=== PATIENT | female | born 1945 | race Caucasian/White ===

== ENCOUNTER 2018-07-09 14:27 | Emergency (ER) | payer MEDICARE, OTHER ==
--- NOTE | 2018-07-09 15:29 | ER Document Report ---
ED Medical Screen (RME) - General Chief Complaint: Vaginal Bleeding Stated Complaint: DIZZINESS,VAGINAL BLEEDING Time Seen by Provider: 07/09/18 15:21 Notes: 72-year-old female patient complains of a progressive weakness. In the recent past she had a defective hip implant changed out due to a problem with heavy metals leaching from the implant surface. She reports 3 weeks of blood when she urinates, does not know if the blood is in the urine or coming from the vagina. She has not had a speculum exam or a catheterized urine to determine where the blood is coming from. She has seen her urologist. I have greeted and performed a rapid initial assessment of this patient. A comprehensive ED assessment and evaluation of the patient, analysis of test results and completion of the medical decision making process will be conducted by additional ED providers. TRAVEL OUTSIDE OF THE [place] IN LAST 30 DAYS: No - Related Data Allergies/Adverse Reactions: acetaminophen [From Percocet] Allergy (Mild, Verified 07/09/18 14:30) Itching oxycodone HCl [From Percocet] Allergy (Mild, Verified 07/09/18 14:30) Itching pneumococcal 7-valent conjugate to [From Prevnar] Allergy (Verified 07/09/18 15:20) Past Medical History - Social History Chew tobacco use (# tins/day): No Frequency of alcohol use: None Drug Abuse: None - Past Medical History Cardiac Medical History: Reports: Hx Hypertension Renal/ Medical History: Denies: Hx Peritoneal Dialysis GI Medical History: Reports: Hx Gastroesophageal Reflux Disease Musculoskeltal Medical History: Reports Hx Arthritis - osteo Past Surgical History: Reports: Hx Orthopedic Surgery - left shoulder surgery, bilateral hip surgeries - Immunizations Hx Diphtheria, Pertussis, Tetanus Vaccination: No Physical Exam - Vital signs Vitals: Temp Pulse Resp BP Pulse Ox 98.4 F 112 H 16 124/70 93 07/09/18 14:36 07/09/18 14:36 07/09/18 14:36 07/09/18 14:36 07/09/18 14:36 Course - Vital Signs Vital signs: Temp Pulse Resp BP Pulse Ox 98.4 F 112 H 16 124/70 93 07/09/18 14:36 07/09/18 14:36 07/09/18 14:36 07/09/18 14:36 07/09/18 14:36
[2018-07-09 16:15] LABS: ABSOLUTE BASOPHILS # (AUTO) 0.1 10^3/uL (0.0-0.2); ABSOLUTE LYMPHOCYTES (AUTO) 0.9 10^3/uL (0.5-4.7); ABSOLUTE MONOCYTES (AUTO) 0.9 10^3/uL (0.1-1.4); ABSOLUTE NEUT (AUTO) 7.1 10^3/uL (1.7-8.2); BASOPHILS % (AUTO) 1.1 % (0-2); EOSINOPHILS % (AUTO) 0.2 % (0-6); HEMATOCRIT 35.6 % (36.0-47.0); HEMOGLOBIN 11.8 g/dL (12.0-15.5); LYMPHOCYTES % (AUTO) 9.7 % (13-45); MEAN CORPUSCULAR HEMOGLOBIN 27.7 pg (27.0-33.4); MEAN CORPUSCULAR HGB CONC 33.2 g/dL (32.0-36.0); MEAN CORPUSCULAR VOLUME 83 fl (80-97); MONOCYTES % (AUTO) 10.2 % (3-13); PLATELET COUNT 418 10^3/uL (150-450); RED BLOOD COUNT 4.27 10^6/uL (3.72-5.28); RED CELL DISTRIBUTION WIDTH 15.8 % (11.5-14.0); SEGMENTED NEUTROPHILS % (AUTO) 78.8 % (42-78); TOTAL CELLS COUNTED % (AUTO) 100 %
[2018-07-09 16:18] LABS: APPEARANCE,URINE SLIGHTLY-CLOUDY; BILIRUBIN,URINE NEGATIVE (NEGATIVE); COLOR,URINE YELLOW; GLUCOSE, URINE NEGATIVE (NEGATIVE); KETONES,URINE NEGATIVE (NEGATIVE); LEUKOCYTE ESTERASE,URINE SMALL (NEGATIVE); NITRITE,URINE NEGATIVE (NEGATIVE); PROTEIN,URINE NEGATIVE (NEGATIVE); UROBILINOGEN,URINE NEGATIVE mg/dL (<2.0)
[2018-07-09 16:34] LABS: ALANINE AMINOTRANSFERASE 33 U/L (9-52); ALBUMIN 3.5 g/dL (3.5-5.0); ALKALINE PHOSPHATASE 96 U/L (38-126); ANION GAP 6 (5-19); ASPARTATE AMINO TRANSFERASE 81 U/L (14-36); BILIRUBIN,DIRECT 0.3 mg/dL (0.0-0.4); BILIRUBIN,TOTAL 0.3 mg/dL (0.2-1.3); BLOOD UREA NITROGEN 18 mg/dL (7-20); CARBON DIOXIDE 28 mmol/L (22-30); CHLORIDE 103 mmol/L (98-107); GLUCOSE 85 mg/dL (75-110); POTASSIUM 4.4 mmol/L (3.6-5.0); SODIUM 137.3 mmol/L (137-145); TOTAL PROTEIN 6.3 g/dL (6.3-8.2)
[2018-07-09] MEDS ORDERED: NORMAL SALINE 500 ML IV ONE (16:44)
--- NOTE | 2018-07-09 18:04 | ER Document Report ---
ED General - General Chief Complaint: Vaginal Bleeding Stated Complaint: DIZZINESS,VAGINAL BLEEDING Time Seen by Provider: 07/09/18 15:21 Notes: Patient is a 72-year-old female that presents to the emergency department for chief complaint of fatigue, lightheadedness, and vaginal bleeding. Patient states that she has had weakness, and lightheadedness and vertigo symptoms that have been progressing over the last several days, and may be longer over months, she is had decreased appetite as well. She also reports having some vaginal bleeding. She has had recurrent urinary tract infections, has been following up with a urologist as well she is been on multiple antibiotics, most recently she discontinued them because she was not feeling well, on Monday coming up here next week she is supposed to have a cystoscopy, to help determine why she is continuing to have recurrent UTIs. In regards to the vaginal bleeding she states that started a few weeks ago as well, and she has been having blood in pads that she is been wearing. She is not sure she is becoming anemic as a result. She denies having any blood in the urine, or blood in the stool. She denies having any pain at this time, and specifically denies having any headache, chest pain, shortness of breath, difficulty breathing, abdominal pain. Past Medical History: Osteoarthritis, rheumatoid arthritis, hypertension, hypothyroidism Past Surgical History: Total hip arthroplasty with revision Social History: Denies tobacco, alcohol or illicit drug use. Family History: Reviewed and noncontributory for presenting illness Allergies: Reviewed, see documented allergy list. REVIEW OF SYSTEMS: Other than noted above, the 12 point review of systems was reviewed with the patient and were negative, all pertinent findings are included in the HPI. PHYSICAL EXAMINATION: Vital signs reviewed, nursing noted reviewed. GENERAL: Elderly, well-developed, well-appearing female, no acute distress HEAD: Atraumatic, normocephalic. EYES: Eyes appear normal, extraocular movements intact, sclera anicteric, conjunctiva are normal. PERRLA, no nystagmus ENT: nares patent, oropharynx clear without exudates. Moist mucous membranes. NECK: Normal range of motion, supple without lymphadenopathy LUNGS: Breath sounds clear to auscultation bilaterally and equal. No wheezes rales or rhonchi. HEART: Regular rate and rhythm without murmurs ABDOMEN: Soft, nontender, normoactive bowel sounds. No rebound, guarding, or rigidity. No masses appreciated. Pelvic Exam: With a set up mechanic coating machines present the exam was explained to the patient and patient agreed to proceed with exam. On exam, no external lesions or abnormalities noted. Internal speculum exam demonstrated normal appearing cervix without purulent discharge, but there was blood in the vaginal vault, appear to be some bleeding from the cervix, but was scant. EXTREMITIES: Nontender, good range of motion, no pitting or edema. NEUROLOGICAL: No focal neurological deficits. Moves all extremities spontaneously Motor and sensory grossly intact on exam. PSYCH: Normal mood, normal affect. SKIN: Warm, Dry, normal turgor, no rashes or lesions noted on exposed skin TRAVEL OUTSIDE OF THE [place] IN LAST 30 DAYS: No - Related Data Allergies/Adverse Reactions: acetaminophen [From Percocet] Allergy (Mild, Verified 07/09/18 14:30) Itching oxycodone HCl [From Percocet] Allergy (Mild, Verified 07/09/18 14:30) Itching pneumococcal 7-valent conjugate to [From Prevnar] Allergy (Verified 07/09/18 15:20) Past Medical History - Social History Smoking Status: Never Smoker Chew tobacco use (# tins/day): No Frequency of alcohol use: None Drug Abuse: None Family History: Reviewed & Not Pertinent Patient has suicidal ideation: No Patient has homicidal ideation: No - Past Medical History Cardiac Medical History: Reports: Hx Hypertension Renal/ Medical History: Denies: Hx Peritoneal Dialysis GI Medical History: Reports: Hx Gastroesophageal Reflux Disease Musculoskeletal Medical History: Reports Hx Arthritis - osteo Past Surgical History: Reports: Hx Orthopedic Surgery - left shoulder surgery, b ilateral hip surgeries - Immunizations Hx Diphtheria, Pertussis, Tetanus Vaccination: No Hx Pneumococcal Vaccination: 06/26/08 Physical Exam - Vital signs Vitals: Temp Pulse Resp BP Pulse Ox 98.4 F 112 H 16 124/70 93 07/09/18 14:36 07/09/18 14:36 07/09/18 14:36 07/09/18 14:36 07/09/18 14:36 Course - Re-evaluation Re-evalutation: Patient seen and examined vital signs reviewed. Laboratory data and imaging were ordered as appropriate for the patient's presenting symptoms and complaint, with consideration of any critical or life threatening conditions that may be associated with their obtained history and exam as noted above. Patient was treated with IV fluid Results were reviewed when available and demonstrated an enlarged uterus, with endometrial thickening, concerning for possible endometrial carcinoma, I discussed at length these results with the patient, and that she will need to follow-up with gynecology to have an endometrial biopsy, which she understood and states that she will call to make an appointment tomorrow, she is also noted to have an elevated TSH, with a low T3, which may be explaining her lightheadedness symptoms, and fatigue, she is currently on 100 mcg of Synthroid, increase this 112 mcg. Advised to follow-up with her primary care physician regarding this. She is also given a prescription for meclizine to help with some of her vertigo-like symptoms. She is advised if her symptoms worsen that she needs to return to the emergency department. She did have a mild anemia, but was not significant, her hemoglobin was 11.8. Her urine was sent for culture, we will not treat at this time as the patient is asymptomatic and following up with urology next week. The patient was re-evaluated and was stable, and improved Evaluation was most consistent with vaginal bleeding, postmenopausal, hypothyroidism, fatigue, lightheadedness Results were discussed with the patient at this point, after careful consideration I feel that that patient can be discharged from the emergency department, the patient was educated treatments and reasons to return to the emergency department based on their presumed diagnosis as noted above, they were advised to followup with a primary care physician in 2-3 days. Patient was agreeable to plan of care. *Note is created using voice recognition software and may contain spelling, syntax or grammatical errors. Laboratory 07/09/18 07/09/18 07/09/18 15:54 16:01 16:01 WBC 9.0 RBC 4.27 Hgb 11.8 L Hct 35.6 L MCV 83 MCH 27.7 MCHC 33.2 RDW 15.8 H Plt Count 418 Seg Neutrophils % 78.8 H Lymphocytes % 9.7 L Monocytes % 10.2 Eosinophils % 0.2 Basophils % 1.1 Absolute Neutrophils 7.1 Absolute Lymphocytes 0.9 Absolute Monocytes 0.9 Absolute Eosinophils 0.0 Absolute Basophils 0.1 Sodium 137.3 Potassium 4.4 Chloride 103 Carbon Dioxide 28 Anion Gap 6 BUN 18 Creatinine 0.77 Est GFR ( Amer) > 60 Est GFR (Non-Af Amer) > 60 Glucose 85 Calcium 9.0 Total Bilirubin 0.3 Direct Bilirubin 0.3 Neonat Total Bilirubin Not Reportable Neonat Direct Bilirubin Not Reportable Neonat Indirect Bili Not Reportable AST 81 H ALT 33 Alkaline Phosphatase 96 Total Protein 6.3 Albumin 3.5 TSH Free T4 Free T3 pg/mL Urine Color YELLOW Urine Appearance SLIGHTLY-CLOUDY Urine pH 5.0 Ur Specific [place] 1.020 Urine Protein NEGATIVE Urine Glucose (UA) NEGATIVE Urine Ketones NEGATIVE Urine Blood NEGATIVE Urine Nitrite NEGATIVE Urine Bilirubin NEGATIVE Urine Urobilinogen NEGATIVE Ur Leukocyte Esterase SMALL H Urine WBC (Auto) 22 Urine RBC (Auto) 3 Urine Bacteria (Auto) 3+ Squamous Epi Cells Auto <1 Urine Mucus (Auto) MANY Urine Ascorbic Acid 40 H 07/09/18 07/09/18 16:01 16:01 WBC RBC Hgb Hct MCV MCH MCHC RDW Plt Count Seg Neutrophils % Lymphocytes % Monocytes % Eosinophils % Basophils % Absolute Neutrophils Absolute Lymphocytes Absolute Monocytes Absolute Eosinophils Absolute Basophils Sodium Potassium Chloride Carbon Dioxide Anion Gap BUN Creatinine Est GFR ( Amer) Est GFR (Non-Af Amer) Glucose Calcium Total Bilirubin Direct Bilirubin Neonat Total Bilirubin Neonat Direct Bilirubin Neonat Indirect Bili AST ALT Alkaline Phosphatase Total Protein Albumin TSH 8.33 H Free T4 1.56 Free T3 pg/mL 2.55 L Urine Color Urine Appearance Urine pH Ur Specific [place] Urine Protein Urine Glucose (UA) Urine Ketones Urine Blood Urine Nitrite Urine Bilirubin Urine Urobilinogen Ur Leukocyte Esterase Urine WBC (Auto) Urine RBC (Auto) Urine Bacteria (Auto) Squamous Epi Cells Auto Urine Mucus (Auto) Urine Ascorbic Acid Transvaginal US 07/09/18 18:14 IMPRESSION: 1. Enlarged uterus with thickened endometrium containing heterogeneous material, which may represent blood products. Given the patient's age, further imaging with MRI suggested. 2. The left and right ovaries were not visualized. - Vital Signs Vital signs: Temp Pulse Resp BP Pulse Ox 98.7 F 89 18 139/77 H 93 07/09/18 21:33 07/09/18 21:33 07/09/18 21:33 07/09/18 21:33 07/09/18 21:33 - Laboratory Result Diagrams: 07/09/18 16:01 07/09/18 16:01 Laboratory results interpreted by me: 07/09/18 07/09/18 07/09/18 15:54 16:01 16:01 Hgb 11.8 L Hct 35.6 L RDW 15.8 H Seg Neutrophils % 78.8 H Lymphocytes % 9.7 L AST 81 H TSH Free T3 pg/mL Ur Leukocyte Esterase SMALL H Urine Ascorbic Acid 40 H 07/09/18 07/09/18 16:01 16:01 Hgb Hct RDW Seg Neutrophils % Lymphocytes % AST TSH 8.33 H Free T3 pg/mL 2.55 L Ur Leukocyte Esterase Urine Ascorbic Acid Discharge - Discharge Clinical Impression: Dizziness, Vaginal bleeding, Endometrial thickening on ultrasound Fatigue Qualifiers: Fatigue type: unspecified Qualified Code(s): R53.83 - Other fatigue Hypothyroidism Qualifiers: Hypothyroidism type: unspecified Qualified Code(s): E03.9 - Hypothyroidism, unspecified Condition: Stable Disposition: HOME, SELF-CARE Instructions: Hypothyroidism ([facility]), Vaginal Bleeding ([facility]) Additional Instructions: Please follow-up with the manager technical sales, call for an appointment tomorrow, and let them know that you need an ENDOMETRIAL BIOPSY because you had bleeding and an abnormal ultrasound in the emergency department and there is concern for cancer. Please take the new dose of Synthroid, once daily in the morning before taking any food, 30 minutes before breakfast, and follow-up with your primary care physician, I would discontinue taking your current dose of Synthroid, do not take them together. You also take the meclizine, to help with your dizziness symptoms, you can take that every 8 hours as needed. Prescriptions: Levothyroxine Sodium [Synthroid 0.112 mg Tablet] 112 mcg PO DAILY #14 tablet RX: Meclizine HCl [Antivert 25 mg Tablet] 25 mg PO TID PRN #15 tablet PRN Reason: Dizziness Referrals: [facility] [Provider Group] - Follow up tomorrow CLAUDIA LUQUE MD [Primary Care Provider] - Follow up in 3-5 days
[2018-07-09 19:19] LABS: FREE T3 2.55 pg/mL (2.77-5.27); FREE T4 (FREE THYROXINE) 1.56 ng/dL (0.78-2.19)
--- NOTE | 2018-07-09 21:07 | RADIOLOGY REPORT (SQ) ---
US PELVIS HISTORY: Vaginal bleeding. COMPARISON: None. TECHNIQUE: Grayscale, color Doppler, and spectral Doppler ultrasound images of the pelvis were obtained. FINDINGS: The uterus is anteverted and heterogeneous, measuring 11.7 x 7.4 x 8.3 cm. The endometrium is heterogeneous and measures 3.8 cm. The cervix measures 3.5 cm in length. The right and left ovaries were not visualized on this study. There is no pelvic free fluid identified. IMPRESSION: 1. Enlarged uterus with thickened endometrium containing heterogeneous material, which may represent blood products. Given the patient's age, further imaging with MRI suggested. 2. The left and right ovaries were not visualized.
[2018-07-09 21:35] VITALS: BP 139/77
== END 2018-07-09 21:36 | disposition home or self-care (01) ==
LOC: ER 14:27
DX: E03.9 Hypothyroidism, unspecified (principal); R93.89 Abnormal findings on diagnostic imaging of other specified body structures; R53.83 Other fatigue; R42 Dizziness and giddiness; N93.9 Abnormal uterine and vaginal bleeding, unspecified; R53.1 Weakness; R63.0 Anorexia; I10 Essential (primary) hypertension
CPT/HCPCS: 99284; 96360; 96361; 51701; 36415; 87086; 84439; 84443; 85025; 87088; 80053; 81001; 87186; 84481; 76830; 93976; J7040

== ENCOUNTER → 2018-07-20 | Outpatient (CLI) | payer MEDICARE, OTHER ==
--- NOTE | 2018-07-20 14:06 | RADIOLOGY REPORT (SQ) ---
EXAM DESCRIPTION: CT HEAD WITH COMPLETED DATE/TIME: 07/20/2018 1:39 pm REASON FOR STUDY: R91.8 OTHER NONSPECIFIC ABNORMAL FINDING OF LUNG FIELD N85.9 NONINFLAMMATORY DISO RDER OF UTERUS, UNSPECIFIED R91.8 OTHER NONSPECIFIC ABNORMAL FINDING OF LUNG FIELD COMPARISON: CT brain 05/11/2012 CT chest 07/20/2018 TECHNIQUE: Axial images acquired through the brain without and with intravenous contrast. Images rev iewed with bone, brain and subdural windows. Additional sagittal and coronal reconstructions were ge nerated. Images stored on PACS. All CT scanners at this facility use dose modulation, iterative reconstruction, and/or weight based d osing when appropriate to reduce radiation dose to as low as reasonably achievable (ALARA). [facility]: Dose Right [facility]: CareDose [facility]: Dose Right [facility]: Teradose 4D [facility]: [employer] CONTRAST TYPE AND DOSE: 80 mL of IV Omnipaque 350- low osmolar. RENAL FUNCTION: Creatinine 0.8. RADIATION DOSE: CT Rad equipment meets quality standard of care and radiation dose reduction techniq ues were employed. CTDIvol: 48.6 mGy. DLP: 904 mGy-cm.. LIMITATIONS: None. FINDINGS: VENTRICLES: Normal size and contour. CEREBRUM: No masses. No hemorrhage. No midline shift. Benign perivascular space right basal ganglia Normal camacho/white matter differentiation. No evidence for acute infarction. No enhancing lesions. CEREBELLUM: No masses. No hemorrhage. No alteration of density. No evidence for acute infarction. No enhancing lesions. EXTRA-AXIAL SPACES: No fluid collections. No enhancing lesions. ORBITS AND GLOBE: No intra- or extraconal masses. Normal contour of globe without masses. CALVARIUM: No fracture. PARANASAL SINUSES: No fluid or mucosal thickening. SOFT TISSUES: No mass or hematoma. OTHER: No other significant finding. IMPRESSION: No CT evidence of metastatic disease intracranially. Benign perivascular space right ba ankur ganglia. EVIDENCE OF ACUTE STROKE: NO. TECHNICAL DOCUMENTATION: JOB ID: [id number] Quality ID # [id number]: Final reports with documentation of one or more dose reduction techniques (e.g., Au tomated exposure control, adjustment of the mA and/or kV according to patient size, use of iterative reconstruction technique) 2010 [employer]- All Rights Reserved Reading location - IP/workstation name: [email or web address]
--- NOTE | 2018-07-20 14:15 | RADIOLOGY REPORT (SQ) ---
EXAM DESCRIPTION: CT CHEST WITH COMPLETED DATE/TIME: 07/20/2018 1:39 pm REASON FOR STUDY: R91.8 OTHER NONSPECIFIC ABNORMAL FINDING OF LUNG FIELD N85.9 NONINFLAMMATORY DISO RDER OF UTERUS, UNSPECIFIED R91.8 OTHER NONSPECIFIC ABNORMAL FINDING OF LUNG FIELD COMPARISON: CT abdomen pelvis [facility] 07/16/2018 CT brain here, same date TECHNIQUE: CT scan of the chest performed using helical scanning technique with dynamic intravenous contrast injection. Images reviewed with lung, soft tissue and bone windows. Reconstructed coronal and sagittal MPR and MIP images reviewed. All images stored on PACS. All CT scanners at this facility use dose modulation, iterative reconstruction, and/or weight based d osing when appropriate to reduce radiation dose to as low as reasonably achievable (ALARA). [facility]: Dose Right [facility]: CareDose [facility]: Dose Right [facility]: Teradose 4D [facility]: [employer] CONTRAST TYPE AND DOSE: contrast/concentration: Isovue 350.00 mg/ml; Total Contrast Delivered: 80.0 ml; Total Saline Delivered: 55.0 ml RENAL FUNCTION: Creatinine 0.8 RADIATION DOSE: CT Rad equipment meets quality standard of care and radiation dose reduction techniq ues were employed. CTDIvol: 8.6 mGy. DLP: 341 mGy-cm. . LIMITATIONS: None. FINDINGS: LUNGS AND PLEURA: Innumerable lung metastatic lesions are present M of the motor ALEJANDRO which are 2 cm in diameter. Largest conglomerate nodule is in the right lower lobe axial image 76, 4.6 by 3.2 cm in size. Findings are worrisome for metastatic disease. No pleural effusion. No pneumothorax. No alveolar infiltrates worrisome for pulmonary edema. HILAR AND MEDIASTINAL STRUCTURES: Bulky adenopathy in the mediastinum is present as follows: 3 x 2.2 cm right paratracheal axial image 18 2.4 x 2 cm precarinal axial image 23. 2.5 x 1.7 cm AP window axial image 24 3.7 x 2.3 cm right hilum axial image 28 2 x 1.7 cm right hilum axial image 33 2.2 x 2 cm left hilum axial image 32 HEART AND VASCULAR STRUCTURES: No aneurysm or dissection. No central pulmonary emboli. No pericardi al effusion. HARDWARE: None in the chest. UPPER ABDOMEN: No significant findings. Limited exam. THYROID AND OTHER SOFT TISSUES: No masses. No adenopathy. BONES: No significant finding. OTHER: No other significant finding. IMPRESSION: Multiple pulmonary nodules worrisome for metastatic disease. Hilar and mediastinal nessa opathy. TECHNICAL DOCUMENTATION: JOB ID: [id number] Quality ID # 436: Final reports with documentation of one or more dose reduction techniques (e.g., Au tomated exposure control, adjustment of the mA and/or kV according to patient size, use of iterative reconstruction technique) 2010 [employer]- All Rights Reserved Reading location - IP/workstation name: [email or web address]
== END ==
LOC: RAD 12:55
PROVIDERS: ATTEND Internal Medicine Hematology & Oncology
DX: N85.9 Noninflammatory disorder of uterus, unspecified (principal); R91.8 Other nonspecific abnormal finding of lung field
CPT/HCPCS: 70460; 71260

== ENCOUNTER 2018-07-31 08:16 | Day surgery (SDC) | payer MEDICARE, OTHER ==
[2018-07-31 09:14] LABS: HEMATOCRIT 37.9 % (36.0-47.0); HEMOGLOBIN 12.6 g/dL (12.0-15.5); MEAN CORPUSCULAR HGB CONC 33.2 g/dL (32.0-36.0); MEAN CORPUSCULAR VOLUME 82 fl (80-97); PLATELET COUNT 444 10^3/uL (150-450); RED BLOOD COUNT 4.64 10^6/uL (3.72-5.28); RED CELL DISTRIBUTION WIDTH 15.6 % (11.5-14.0); WHITE BLOOD COUNT 9.2 10^3/uL (4.0-10.5)
[2018-07-31 09:25] LABS: INTERNATIONAL RATION (INR) 1.08; PROTHROMBIN TIME 14.5 SEC (11.4-15.4)
[2018-07-31 09:26] LABS: PARTIAL THROMBOPLASTIN TIME 28.6 SEC (23.5-35.8)
[2018-07-31 09:31] LABS: BLOOD UREA NITROGEN 13 mg/dL (7-20)
[2018-07-31] MEDS ORDERED: LIDOCAINE 1% INJ-PF (10 MG/ML) 30 ML SDV ONE (10:55)
[2018-07-31] MEDS ORDERED: FENTANYL CITRATE INJ/PF 100 MCG/2 ML AMPUL ONE ×2 (10:55→12:23)
[2018-07-31] MEDS ORDERED: MIDAZOLAM 2 MG/2 ML INJ ONE ×2 (10:55→12:23)
--- NOTE | 2018-07-31 12:14 | RADIOLOGY REPORT (SQ) ---
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 TECHNIQUE: CT guided biopsy of the right lower lobe pulmonary nodule performed with conscious sedati on. All CT scanners at this facility use dose modulation, iterative reconstruction, and/or weight based d osing when appropriate to reduce radiation dose to as low as reasonably achievable (ALARA). [facility]: Dose Right [facility]: CareDose [facility]: Dose Right [facility]: Teradose 4D [facility]: [employer] RADIATION DOSE: mGy. FINDINGS: After obtaining informed consent and explaining the risks and benefits of conscious sedati on,the patient agreed to the procedure. Prior to the procedure, a time out was performed to verify th e patient's identity and planned procedure. IV sedation was administered and physician direction by the registered nurse using 1 milligrams of Ve rsed and 50 micrograms of fentanyl, for conscious sedation. Physiologic monitoring was provided befor e, during, and after sedation. The total sedation time was 30 minutes. Documentation face to face time, the performing proceduralist, spent monitoring the patient: [address] scanning was performed to localize the percutaneous site for the biopsy approach. After sterile skin prep and local lidocaine for skin and deep tissue anesthesia, a coaxial biopsy nee dle was used to obtain multiple cores of tissue. A total of 4 passes were made. The biopsy tissue was submitted to the lab in formalin. There were no immediate complications. Pathology is pending at the time of dictation. IMPRESSION: CT FLUOROSCOPY GUIDED BIOPSY OF THE RIGHT LOWER LOBE PULMONARY NODULE PERFORMED WITHOUT IMMEDIATE COMPLICATION. PATHOLOGY PENDING. COMMENT: Quality ID 145: Final reports for procedures using fluoroscopy that document radiation exp osure indices, or exposure time and number of fluorographic images (if radiation exposure indices are not available) Patient medication list reviewed: Yes- Quality ID# [id number]:Eligible professional attests to documenting i n the medical record they obtained, updated, or reviewed the patient's current medications.. TECHNICAL DOCUMENTATION: JOB ID: [id number] Quality ID# 436: Final reports with documentation of one or more dose reduction techniques (e.g., Aut omated exposure control, adjustment of the mA and/or kV according to patient size, use of iterative r econstruction technique) 2010 [employer] All Rights Reserved Reading location - IP/workstation name: [email or web address]
--- NOTE | 2018-07-31 12:14 | RADIOLOGY REPORT (SQ) ---
EXAM DESCRIPTION: CT BIOPSY LUNG/MEDIASTINUM; CT NEEDLE PLACEMENT COMPLETED DATE/TIME: 07/31/2018 11:51 am; 07/31/2018 11:49 am REASON FOR STUDY: MALIGNANT NEOPLASM OF ENDOMETRIUM; MALIGNANT NEOPLASM OF ENDOMETRIUM, LUNG BIOPSY C54.1 MALIGNANT NEOPLASM OF ENDOMETRIUM Z79.01 TREATER (CURRENT) USE OF ANTICOAGULANTS COMPARISON: None. TECHNIQUE: CT guided biopsy of the right lower lobe pulmonary nodule performed with conscious sedati on. All CT scanners at this facility use dose modulation, iterative reconstruction, and/or weight based d osing when appropriate to reduce radiation dose to as low as reasonably achievable (ALARA). [facility]: Dose Right [facility]: CareDose [facility]: Dose Right [facility]: Teradose 4D [facility]: [employer] RADIATION DOSE: mGy. FINDINGS: After obtaining informed consent and explaining the risks and benefits of conscious sedati on,the patient agreed to the procedure. Prior to the procedure, a time out was performed to verify th e patient's identity and planned procedure. IV sedation was administered and physician direction by the registered nurse using 1 milligrams of Ve rsed and 50 micrograms of fentanyl, for conscious sedation. Physiologic monitoring was provided befor e, during, and after sedation. The total sedation time was 30 minutes. Documentation face to face time, the performing proceduralist, spent monitoring the patient: [address] scanning was performed to localize the percutaneous site for the biopsy approach. After sterile skin prep and local lidocaine for skin and deep tissue anesthesia, a coaxial biopsy nee dle was used to obtain multiple cores of tissue. A total of 4 passes were made. The biopsy tissue was submitted to the lab in formalin. There were no immediate complications. Pathology is pending at the time of dictation. IMPRESSION: CT FLUOROSCOPY GUIDED BIOPSY OF THE RIGHT LOWER LOBE PULMONARY NODULE PERFORMED WITHOUT IMMEDIATE COMPLICATION. PATHOLOGY PENDING. COMMENT: Quality ID 145: Final reports for procedures using fluoroscopy that document radiation exp osure indices, or exposure time and number of fluorographic images (if radiation exposure indices are not available) Patient medication list reviewed: Yes- Quality ID# 130:Eligible professional attests to documenting i n the medical record they obtained, updated, or reviewed the patient's current medications.. TECHNICAL DOCUMENTATION: JOB ID: [id number] Quality ID# 436: Final reports with documentation of one or more dose reduction techniques (e.g., Aut omated exposure control, adjustment of the mA and/or kV according to patient size, use of iterative r econstruction technique) 2010 [employer]- All Rights Reserved Reading location - IP/workstation name: [email or web address]
[2018-07-31] MEDS ORDERED: LIDOCAINE 0.5% INJ-PF (5 MG/ML) 50 ML SDV ONE (12:22)
[2018-07-31] MEDS ORDERED: BACITRACIN INJ 50,000 UNIT VIAL ONE (12:23)
[2018-07-31] MEDS ORDERED: CEFAZOLIN INJ 1 GM VIAL ONE (12:23)
--- NOTE | 2018-07-31 12:29 | RADIOLOGY REPORT (SQ) ---
EXAM DESCRIPTION: CHEST SINGLE VIEW COMPLETED DATE/TIME: 07/31/2018 12:06 pm REASON FOR STUDY: MALIGNANT NEOPLASM OF ENDOMETRIUM POST BIOPSY COMPARISON: Same day CT EXAM PARAMETERS: NUMBER OF VIEWS: One view. TECHNIQUE: Single frontal radiographic view of the chest acquired. RADIATION DOSE: NA LIMITATIONS: None. FINDINGS: LUNGS AND PLEURA: Innumerable bilateral pulmonary nodules, not significantly changed from prior. No appreciable pneumothorax post right-sided biopsy. No new effusion. MEDIASTINUM AND HILAR STRUCTURES: Stable. HEART AND VASCULAR STRUCTURES: Normal heart size. Normal vasculature. BONES: No acute findings. Bone anchors in both shoulders. HARDWARE: None in the chest. OTHER: No other significant finding. IMPRESSION: No appreciable pneumothorax post right lung biopsy. TECHNICAL DOCUMENTATION: JOB ID: [id number] [employer]- All Rights Reserved Reading location - IP/workstation name: [email or web address]
[2018-07-31] MEDS ORDERED: CEFAZOLIN 1 GM/D5W RTU 1 GM/50 ML RTUPB IV ONE (13:30)
--- NOTE | 2018-07-31 15:10 | RADIOLOGY REPORT (SQ) ---
EXAM DESCRIPTION: PORTACATH INSERTION; GUIDANCE ULTRASOUND; GUIDANCE FLUOROSCOPIC COMPLETED DATE/TIME: 07/31/2018 1:34 pm REASON FOR STUDY: C54.1 ENDOMETRIAL CA C54.1 MALIGNANT NEOPLASM OF ENDOMETRIUM Z79.01 [facility] (C URRENT) USE OF ANTICOAGULANTS COMPARISON: None. FLUORO TIME: 0.5 minutes 3 images saved to PACS. LIMITATIONS: None. PROCEDURE: After obtaining informed consent, the patient was brought to the special procedures suite and was placed supine on the fluoroscopy table. The patient was prepped and draped in the usual st erile fashion. IV conscious sedation was administered and physician direction by the registered cherry se using 1 milligrams of Versed and 50 micrograms of fentanyl. Physiologic monitoring was provided b efore, during, and after sedation. The total sedation time was 45 minutes. Documentation face to face time, the performing proceduralist, spent monitoring the patient: 45minute s. Ultrasound evaluation of potential access sites were performed. After successfully identifying a timmons nt right internal jugular vein, an appropriate percutaneous access site was selected and anesthetized with 1 percent lidocaine. The vein was accessed using a 21 gauge micropuncture needle. An 018 guid ewire was advanced centrally. A micropuncture set was advanced over the wire. The wire was used to measure appropriate catheter length and was removed. A 035 J-wire was advanced through the catheter into the IVC. An appropriate Port-A-Cath pocket site was selected on the anterior chest wall. The a tommy was infiltrated with 1 percent lidocaine. The pocket was fashion using sharp and blunt dissectio n. The Bard CT and [employer] power injectable port hub was placed within the pocket site. The catheter tub ing was tunneled from the pocket site to the vein puncture site and trimmed to the appropriate length using the wire measurement. The peel-away sheath was advanced over the 035 wire and the wire remove d. The catheter was advanced through the sheath. The sheath was peeled leaving the catheter in cavo atrial junction. The port was noted to flushed and aspirated well. The main puncture site and Port- A-Cath pocket site were closed using 3-0 Vicryl suture. The port was flushed with heparinized saline. The patient tolerated the procedure well and left the department in satisfactory condition. Ultrasound images of the access vein and a spot film documenting final catheter position were stored on the PACS system. IMPRESSION: Successful placement of right IJ Port-A-Cath using ultrasound and fluoroscopic guidance. COMMENT: Patient medication list reviewed: Yes- Quality ID# 130: Eligible professional attests to do cumenting in the medical record they obtained, updated, or reviewed the patient's current medications . . Quality ID #76: The patient was prepped and draped using maximum sterile barrier technique including cap, mask, sterile gown, sterile gloves, a large sterile sheet, hand hygiene, and 2% Chlorhexidine fo r cutaneous antisepsis. When ultrasound is used, sterile ultrasound techniques are followed requiring sterile gel and sterile probes. Quality ID 145: Final reports for procedures using fluoroscopy that document radiation exposure constance marnie, or exposure time and number of fluorographic images (if radiation exposure indices are not avail able) TECHNICAL DOCUMENTATION: JOB ID: [id number] [employer]- All Rights Reserved rev-10/11 Reading location - IP/workstation name: [email or web address]
--- NOTE | 2018-07-31 15:10 | RADIOLOGY REPORT (SQ) ---
EXAM DESCRIPTION: PORTACATH INSERTION; GUIDANCE ULTRASOUND; GUIDANCE FLUOROSCOPIC COMPLETED DATE/TIME: 07/31/2018 1:34 pm REASON FOR STUDY: C54.1 ENDOMETRIAL CA C54.1 MALIGNANT NEOPLASM OF ENDOMETRIUM Z79.01 [facility] (C URRENT) USE OF ANTICOAGULANTS COMPARISON: None. FLUORO TIME: 0.5 minutes 3 images saved to PACS. LIMITATIONS: None. PROCEDURE: After obtaining informed consent, the patient was brought to the special procedures suite and was placed supine on the fluoroscopy table. The patient was prepped and draped in the usual st erile fashion. IV conscious sedation was administered and physician direction by the registered cherry se using 1 milligrams of Versed and 50 micrograms of fentanyl. Physiologic monitoring was provided b efore, during, and after sedation. The total sedation time was 45 minutes. Documentation face to face time, the performing proceduralist, spent monitoring the patient: 45minute s. Ultrasound evaluation of potential access sites were performed. After successfully identifying a timmons nt right internal jugular vein, an appropriate percutaneous access site was selected and anesthetized with 1 percent lidocaine. The vein was accessed using a 21 gauge micropuncture needle. An 018 guid ewire was advanced centrally. A micropuncture set was advanced over the wire. The wire was used to measure appropriate catheter length and was removed. A 035 J-wire was advanced through the catheter into the IVC. An appropriate Port-A-Cath pocket site was selected on the anterior chest wall. The a tommy was infiltrated with 1 percent lidocaine. The pocket was fashion using sharp and blunt dissectio n. The Bard CT and [employer] power injectable port hub was placed within the pocket site. The catheter tub ing was tunneled from the pocket site to the vein puncture site and trimmed to the appropriate length using the wire measurement. The peel-away sheath was advanced over the 035 wire and the wire remove d. The catheter was advanced through the sheath. The sheath was peeled leaving the catheter in cavo atrial junction. The port was noted to flushed and aspirated well. The main puncture site and Port- A-Cath pocket site were closed using 3-0 Vicryl suture. The port was flushed with heparinized saline. The patient tolerated the procedure well and left the department in satisfactory condition. Ultrasound images of the access vein and a spot film documenting final catheter position were stored on the PACS system. IMPRESSION: Successful placement of right IJ Port-A-Cath using ultrasound and fluoroscopic guidance. COMMENT: Patient medication list reviewed: Yes- Quality ID# 130: Eligible professional attests to do cumenting in the medical record they obtained, updated, or reviewed the patient's current medications . . Quality ID #76: The patient was prepped and draped using maximum sterile barrier technique including cap, mask, sterile gown, sterile gloves, a large sterile sheet, hand hygiene, and 2% Chlorhexidine fo r cutaneous antisepsis. When ultrasound is used, sterile ultrasound techniques are followed requiring sterile gel and sterile probes. Quality ID 145: Final reports for procedures using fluoroscopy that document radiation exposure ocnstance marnie, or exposure time and number of fluorographic images (if radiation exposure indices are not avail able) TECHNICAL DOCUMENTATION: JOB ID: [id number] [employer]- All Rights Reserved rev-10/11 Reading location - IP/workstation name: [email or web address]
--- NOTE | 2018-07-31 15:14 | RADIOLOGY REPORT (SQ) ---
EXAM DESCRIPTION: CHEST SINGLE VIEW COMPLETED DATE/TIME: 07/31/2018 2:33 pm REASON FOR STUDY: MALIGNANT NEOPLASM OF ENDOMETRIUM POST BIOPSY COMPARISON: Same day radiograph EXAM PARAMETERS: NUMBER OF VIEWS: One view. TECHNIQUE: Single frontal radiographic view of the chest acquired. RADIATION DOSE: NA LIMITATIONS: None. FINDINGS: LUNGS AND PLEURA: Stable bilateral pulmonary nodules and masses. No new effusion. No pne umothorax. MEDIASTINUM AND HILAR STRUCTURES: Stable hilar opacities. HEART AND VASCULAR STRUCTURES: Normal heart size. BONES: No acute findings. HARDWARE: New right internal jugular central venous catheter tip overlies cavoatrial junction. Bilat eral bone anchors overlie proximal humerus. OTHER: No other significant finding. IMPRESSION: No pneumothorax. New right sided chest port with catheter tip at cavoatrial junction. Stable bilateral pulmonary nodules. TECHNICAL DOCUMENTATION: JOB ID: [id number] [employer]- All Rights Reserved Reading location - IP/workstation name: [email or web address]
[2018-07-31 15:26] VITALS: BP 133/69
== END 2018-07-31 15:05 | disposition home or self-care (01) ==
LOC: CCL 08:16
PROVIDERS: ATTEND Radiology Vascular & Interventional Radiology
DX: C78.01 Secondary malignant neoplasm of right lung (principal); C54.1 Malignant neoplasm of endometrium; M06.9 Rheumatoid arthritis, unspecified; E03.9 Hypothyroidism, unspecified; E78.00 Pure hypercholesterolemia, unspecified; I10 Essential (primary) hypertension; Z87.891 Personal history of nicotine dependence; Z79.82 Long term (current) use of aspirin; Z79.899 Other long term (current) drug therapy; Z88.2 Allergy status to sulfonamides; Z88.5 Allergy status to narcotic agent; Z88.8 Allergy status to other drugs, medicaments and biological substances; Z79.01 Long term (current) use of anticoagulants
CPT/HCPCS: 36415; 84520; 82565; 85027; 85610; 85730; 88342 ×2; 88341 ×2; 88305 ×2; 36561; 76937; 77001; 71045; 77012; 32405; C1752; C1788; Q9967; J2250; J3490 ×3; J0690; J3010; J1644

== ENCOUNTER 2018-09-29 13:14 | Inpatient (IN) | payer MEDICARE, OTHER ==
[2018-09-29] MEDS ORDERED: ONDANSETRON HCL INJ/PF 4 MG/2 ML SDV IV ONE (13:38)
[2018-09-29] MEDS ORDERED: IBUPROFEN 800 MG TABLET PO ONE (13:45)
[2018-09-29] MEDS ORDERED: ACETAMINOPHEN 325 MG TABLET PO ONE (13:59)
--- NOTE | 2018-09-29 14:02 | ER Document Report ---
ED Medical Screen (RME) - General Chief Complaint: Fever Stated Complaint: FEVER Time Seen by Provider: 09/29/18 13:55 Primary Care Provider: ML ALLEN MD [Primary Care Provider] - Follow up as needed TRAVEL OUTSIDE OF THE [place] IN LAST 30 DAYS: No - HPI Notes: 09/29/18 14:00 Patient is a 72-year-old female with a history of uterine cancer that has metastasized to her lungs and currently receiving chemotherapy treatments who presents to the emergency department complaining of fever, nausea/dry heaves, and nasal congestion that began yesterday. She has not taken any Tylenol today. She is otherwise able to eat and drink, but does have a decreased p.o. intake. She is urinating normally and has normal bowel movements although constipated. Patient states that her hemoglobin was low at her oncologist office, but no active bleeding noted. Denies HOPKINS, neck pain, CP, SOB, Abd pain, or rash. I have treated and performed a rapid initial assessment of this patient. A comprehensive ED assessment and evaluation of the patient, analysis of test results and completion of medical decision making process will be conducted by additional ED providers. PHYSICAL EXAMINATION: GENERAL: Well-appearing, well-nourished and in no acute distress. A&Ox4. Answers questions appropriately. LUNGS: Breath sounds clear to auscultation bilaterally and equal. No wheezes rales or rhonchi. HEART: Regular rate and rhythm without murmurs, rubs, gallops. ABDOMEN: Soft, nondistended abdomen. No guarding, no rebound. Normal bowel sounds present. No CVA tenderness bilaterally. Nontender Extremities: No cyanosis, clubbing, or edema b/l. NEUROLOGICAL: Normal speech, normal gait. PSYCH: Normal mood, normal affect. - Related Data Allergies/Adverse Reactions: oxycodone HCl [From Percocet] Allergy (Mild, Verified 09/29/18 13:18) Itching pneumococcal 7-valent conjugate to [From Prevnar] Allergy (Verified 09/29/18 13:18) Past Medical History - Past Medical History Cardiac Medical History: Reports: Hx Hypertension Denies: Hx Coronary Artery Disease, Hx Heart Attack Pulmonary Medical History: Denies: Hx Asthma, Hx Bronchitis, Hx COPD, Hx Pneumonia Neurological Medical History: Denies: Hx Cerebrovascular Accident, Hx Seizures Renal/ Medical History: Denies: Hx Peritoneal Dialysis GI Medical History: Reports: Hx Gastroesophageal Reflux Disease Musculoskeltal Medical History: Reports Hx Arthritis - RA Past Surgical History: Reports: Hx Gynecologic Surgery - D&C, Hx Orthopedic Surgery - left shoulder surgery, bilateral hip surgeries; Lt foot, Hx Tubal Ligation - Immunizations Hx Diphtheria, Pertussis, Tetanus Vaccination: Yes History of Influenza Vaccine for 03/2017 - 08/2017 Season: Yes Influenza Administration Date for 03/2017 - 08/2017 Season: 04/26/18 Physical Exam - Vital signs Vitals: Temp Pulse Resp BP Pulse Ox 100.7 F H 113 H 18 116/65 100 09/29/18 13:33 09/29/18 13:33 09/29/18 13:33 09/29/18 13:33 09/29/18 13:33 Course - Vital Signs Vital signs: Temp Pulse Resp BP Pulse Ox 100.7 F H 113 H 18 116/65 100 09/29/18 13:33 09/29/18 13:33 09/29/18 13:33 09/29/18 13:33 09/29/18 13:33 Doctor's Discharge - Discharge Referrals: ML ALLEN MD [Primary Care Provider] - Follow up as needed
[2018-09-29] MEDS: NORMAL SALINE 1000 ML 1,000 ML IV PRN ×3 (14:36→18:33)
--- NOTE | 2018-09-29 14:50 | RADIOLOGY REPORT (SQ) ---
EXAM DESCRIPTION: CHEST SINGLE VIEW COMPLETED DATE/TIME: 09/29/2018 2:37 pm REASON FOR STUDY: fever COMPARISON: 07/31/2018 and earlier EXAM PARAMETERS: NUMBER OF VIEWS: One view. TECHNIQUE: Single frontal radiographic view of the chest acquired. RADIATION DOSE: NA LIMITATIONS: None. FINDINGS: LUNGS AND PLEURA: Greatly improved appearance of bilateral pulmonary nodules. No focal co nsolidation. Probable trace right pleural effusion. Left costophrenic angle is sharp. No pneumotho rax. MEDIASTINUM AND HILAR STRUCTURES: No masses. Contour normal. HEART AND VASCULAR STRUCTURES: Heart normal in size. Normal vasculature. BONES: No acute findings. HARDWARE: Unchanged positioning of the right-sided chest port. Bilateral suture anchors of the humer al heads. OTHER: No other significant finding. IMPRESSION: 1. Probable trace right pleural effusion. 2. Greatly improved appearance of bilateral pulmonary nodules. TECHNICAL DOCUMENTATION: JOB ID: [id number] [employer]- All Rights Reserved Reading location - IP/workstation name: [email or web address]
[2018-09-29 14:57] LABS: HEMATOCRIT 26.9 % (36.0-47.0); HEMOGLOBIN 9.1 g/dL (12.0-15.5); INTERNATIONAL RATION (INR) 1.09; MEAN CORPUSCULAR HEMOGLOBIN 28.6 pg (27.0-33.4); MEAN CORPUSCULAR VOLUME 84 fl (80-97); PLATELET COUNT 151 10^3/uL (150-450); PROTHROMBIN TIME 14.7 SEC (11.4-15.4); RED BLOOD COUNT 3.19 10^6/uL (3.72-5.28); RED CELL DISTRIBUTION WIDTH 23.4 % (11.5-14.0); WHITE BLOOD COUNT 2.1 10^3/uL (4.0-10.5)
[2018-09-29 14:58] LABS: PARTIAL THROMBOPLASTIN TIME 34.5 SEC (23.5-35.8)
[2018-09-29 15:06] LABS: VENOUS BLOOD BASE EXCESS 0.9 mmol/L; VENOUS BLOOD HCO3 26.3 mmol/L (20-32); VENOUS BLOOD PH 7.38 (7.30-7.42)
[2018-09-29 15:19] LABS: APPEARANCE,URINE SLIGHTLY-CLOUDY; BILIRUBIN,URINE NEGATIVE (NEGATIVE); COLOR,URINE AMBER; GLUCOSE, URINE NEGATIVE (NEGATIVE); KETONES,URINE NEGATIVE (NEGATIVE); LEUKOCYTE ESTERASE,URINE NEGATIVE (NEGATIVE); NITRITE,URINE NEGATIVE (NEGATIVE); PROTEIN,URINE 30 mg/dL (NEGATIVE); URINE SPECIFIC GRAVITY 1.016; UROBILINOGEN,URINE NEGATIVE mg/dL (<2.0)
[2018-09-29 15:21] LABS: ABSOLUTE LYMPHOCYTES# (MANUAL) 0.7 10^3/uL (0.5-4.7); ABSOLUTE MONOCYTES # (MANUAL) 1.2 10^3/uL (0.1-1.4); ABSOLUTE NEUTROPHILS# (MANUAL) 0.2 10^3/uL (1.7-8.2); BASOPHILS % (MANUAL) 1 % (0-2); EOSINOPHILS % (MANUAL) 0 % (0-6); LYMPHOCYTES % (MANUAL) 35 % (13-45); SEGMENTED NEUTROPHILS % (MAN) 8 % (42-78); TOTAL CELLS COUNTED 100
[2018-09-29 15:22] LABS: ANISOCYTOSIS 3+; OVALOCYTES 1+; PLATELET CLUMPS PRESENT; PLATELET COMMENT ADEQUATE; POIKILOCYTOSIS 1+; POLYCHROMASIA SLIGHT
[2018-09-29 15:24] LABS: MONOCYTES % (MANUAL) 56 % (3-13)
[2018-09-29 15:30] LABS: ALANINE AMINOTRANSFERASE 28 U/L (9-52); ALBUMIN 3.5 g/dL (3.5-5.0); ALKALINE PHOSPHATASE 68 U/L (38-126); ANION GAP 9 (5-19); ASPARTATE AMINO TRANSFERASE 28 U/L (14-36); BILIRUBIN,DIRECT 0.3 mg/dL (0.0-0.4); BILIRUBIN,TOTAL 0.6 mg/dL (0.2-1.3); BLOOD UREA NITROGEN 10 mg/dL (7-20); CARBON DIOXIDE 26 mmol/L (22-30); CHLORIDE 97 mmol/L (98-107); GLUCOSE 134 mg/dL (75-110); LIPASE 16.5 U/L (23-300); POTASSIUM 3.7 mmol/L (3.6-5.0); SODIUM 132.1 mmol/L (137-145); TOTAL PROTEIN 6.5 g/dL (6.3-8.2)
[2018-09-29] MEDS ORDERED: CEFEPIME 1 GM/D5W RTU 1 GM/50 ML RTUPB IV ONE (16:24)
--- NOTE | 2018-09-29 16:43 | ER Document Report ---
Entered by CARL MONTALVO SCRIBE 09/29/18 1447 Acting as scribe for:ASHLIE TIDWELL MD ED General - General Chief Complaint: Fever Stated Complaint: FEVER Time Seen by Provider: 09/29/18 13:55 Primary Care Provider: ML GARCIA MD [ACTIVE STAFF] - Follow up as needed Mode of Arrival: Ambulatory Information source: Patient Notes: Patient is a 72 year old female with uterine cancer with mets to lungs, HTN, HLD, hypothyroidism, GERD, anxiety, depression presents to the emergency department complaining of fever, nausea and dry heaving onset yesterday. Patient states she was instructed to come to the emergency department by her oncologist, Dr. Garcia, due to having a fever greater than 102.4. Patient denies any coughing or trouble breathing. Family does report the patient having low hemoglobin on last set of blood work done at PCP's office. Patient is currently on chemo. Her last session was approximately 11 days ago. TRAVEL OUTSIDE OF THE [place] IN LAST 30 DAYS: No - Related Data Allergies/Adverse Reactions: oxycodone HCl [From Percocet] Allergy (Mild, Verified 09/29/18 13:18) Itching pneumococcal 7-valent conjugate to [From Prevnar] Allergy (Verified 09/29/18 13:18) Past Medical History - General Information source: Patient - Social History Smoking Status: Never Smoker Cigarette use (# per day): No Chew tobacco use (# tins/day): No Smoking Education Provided: No Family History: Reviewed & Not Pertinent Patient has suicidal ideation: No Patient has homicidal ideation: No - Past Medical History Cardiac Medical History: Reports: Hx Hypertension Malignancy Medical History: Reports: Other - Uterine cancer with mets to lungs 2019 GI Medical History: Reports: Hx Gastroesophageal Reflux Disease Musculoskeletal Medical History: Reports Hx Arthritis - RA Past Surgical History: Reports: Hx Gynecologic Surgery - D&C, Hx Orthopedic Surgery - left shoulder surgery, bilateral hip surgeries; Lt foot, Hx Tubal Ligation - Immunizations Hx Diphtheria, Pertussis, Tetanus Vaccination: Yes Hx Pneumococcal Vaccination: 06/26/08 Review of Systems - Review of Systems Constitutional: See HPI, Fever EENT: No symptoms reported Cardiovascular: No symptoms reported Respiratory: No symptoms reported Gastrointestinal: See HPI, Nausea, Vomiting - dry heaving Genitourinary: No symptoms reported Female Genitourinary: No symptoms reported Musculoskeletal: No symptoms reported Skin: No symptoms reported Hematologic/Lymphatic: No symptoms reported Neurological/Psychological: No symptoms reported -: Yes All other systems reviewed and negative Physical Exam - Vital signs Vitals: Temp Pulse Resp BP Pulse Ox 100.7 F H 113 H 18 116/65 100 09/29/18 13:33 09/29/18 13:33 09/29/18 13:33 09/29/18 13:33 09/29/18 13:33 - Notes Notes: GENERAL: Alert, interacts well. No acute distress. HEAD: Normocephalic, atraumatic. EYES: Pupils equal, round, and reactive to light. Extraocular movements intact. ENT: Oral mucosa moist, tongue midline. NECK: Full range of motion. Supple. Trachea midline. LUNGS: Clear to auscultation bilaterally, no wheezes, rales, or rhonchi. No respiratory distress. HEART: Regular rate and rhythm. No murmurs, gallops, or rubs. ABDOMEN: Soft, non-tender, obese. Non-distended. Bowel sounds present in all 4 quadrants. No guarding, rigidity, or rebound. EXTREMITIES: Moves all 4 extremities spontaneously. No edema, radial and dorsalis pedis pulses 2/4 bilaterally. No cyanosis. NEUROLOGICAL: Alert and oriented x3. Normal speech. PSYCH: Normal affect, normal mood. SKIN: Warm, dry, normal turgor. No rashes or lesions noted. Course - Vital Signs Vital signs: Temp Pulse Resp BP Pulse Ox 98.2 F 113 H 17 122/62 99 09/29/18 15:52 09/29/18 13:33 09/29/18 15:01 09/29/18 15:01 09/29/18 15:01 - Laboratory Result Diagrams: 09/29/18 14:15 09/29/18 14:15 Laboratory results interpreted by me: 09/29/18 09/29/18 09/29/18 14:15 14:15 14:29 WBC 2.1 L RBC 3.19 L Hgb 9.1 L Hct 26.9 L RDW 23.4 H Seg Neuts % (Manual) 8 L Monocytes % (Manual) 56 H Abs Neuts (Manual) 0.2 L Sodium 132.1 L Chloride 97 L Glucose 134 H POC Glucose 148 H Lipase 16.5 L Urine Protein Urine Ascorbic Acid 09/29/18 15:02 WBC RBC Hgb Hct RDW Seg Neuts % (Manual) Monocytes % (Manual) Abs Neuts (Manual) Sodium Chloride Glucose POC Glucose Lipase Urine Protein 30 H Urine Ascorbic Acid 40 H - Diagnostic Test Radiology reviewed: Reports reviewed - Chest x-ray shows probable trace pleural effusion on the right. Greatly improved appearance of pulmonary nodules bilaterally. - Consults Dr. Valdivia Time consulted: 16:40 Consulted provider: will come to ER - Telemetry admission Discharge - Discharge Clinical Impression: Febrile neutropenia Uterine cancer Qualifiers: Malignant neoplasm of uterus location: unspecified site of uterus Qualified Code(s): C55 - Malignant neoplasm of uterus, part unspecified Condition: Good Disposition: ADMITTED INPATIENT Admitting Provider: Skip (Hospitalist) Unit Admitted: Telemetry Referrals: ML GARCIA MD [ACTIVE STAFF] - Follow up as needed Scribe Attestation: 09/29/18 15:50 I personally performed the services described in the documentation, reviewed and edited the documentation which was dictated to the scribe in my presence, and it accurately records my words and actions. I personally performed the services described in the documentation, reviewed and edited the documentation which was dictated to the scribe in my presence, and it accurately records my words and actions.
[2018-09-29] MEDS ORDERED: TRAMADOL HCL 50 MG TABLET PO PRN (16:45)
[2018-09-29 16:48] LABS: A TYPE INFLUENZA AG NEGATIVE (NEGATIVE); B INFLUENZA AG NEGATIVE (NEGATIVE)
[2018-09-29] MEDS ORDERED: ACETAMINOPHEN 325 MG TABLET PO PRN (17:09)
[2018-09-29] MEDS ORDERED: ONDANSETRON HCL INJ/PF 4 MG/2 ML SDV IV PRN (17:09)
[2018-09-29] MEDS ORDERED: CALCIUM CARBONATE 250 MG/VITAMIN D3 125 UNIT TABLET PO ONE (17:15)
[2018-09-29] MEDS ORDERED: ATORVASTATIN CALCIUM 10 MG TABLET PO ONE (17:30)
[2018-09-29] MEDS ORDERED: LEFLUNOMIDE 20 MG TABLET PO ONE (17:30)
[2018-09-29] MEDS ORDERED: LOSARTAN POTASSIUM 50 MG TABLET PO ONE (17:30)
[2018-09-29] MEDS ORDERED: MULTIVITAMINS W-IRON TABLET, CHEWABLE PO ONE (17:30)
[2018-09-29] MEDS ORDERED: FOLIC ACID 1 MG TABLET PO ONE (17:30)
[2018-09-29] MEDS ORDERED: PANTOPRAZOLE SODIUM 40 MG TABLET.DR PO ONE (17:30)
[2018-09-29] MEDS ORDERED: OMEGA-3 ACID ETHYL ESTERS 1 GM CAPSULE PO ONE (17:30)
--- NOTE | 2018-09-29 17:31 | PDOC H&P ---
History of Present Illness Admission Date/PCP: 09/29/18 16:55 CLAUDIA LUQUE MD Patient complains of: Fever of 1 day duration History of Present Illness: PRASHANTH MARIANO is a 72 year old female with history of uterine cancer receiving chemotherapy metastasis to the lungs, hypertension, rheumatoid arthritis, hyperlipidemia came to the emergency room fever of 1 day duration. As per the family she has a fever of 100.7 yesterday associated with chills and sweating. She is also complaining of stuffy nose. Denies any chest pains or cough. Complaining of nausea decreased appetite. Denies any constipation diarrhea. Denies any rashes. Received chemotherapy 11 days ago. Most with Dr. Schumacher. In the emergency room workup was done and found to have a lipase account 2.1 and neutrophils 8, with fever of 100.7. Blood pressures are stable. Chest x-ray w as negative. She received cefepime in the ER and medical consult was called for admission. Past Medical History Cardiac Medical History: Reports: Hypertension Denies: Coronary Artery Disease, Myocardial Infarction Pulmonary Medical History: Denies: Asthma, Bronchitis, Chronic Obstructive Pulmonary Disease (COPD), Pneumonia Neurological Medical History: Denies: Seizures Malignancy Medical History: Reports: Other - Uterine cancer with mets to lungs 2019 GI Medical History: Reports: Gastroesophageal Reflux Disease Musculoskeltal Medical History: Reports: Arthritis - RA Hematology: Denies: Anemia Past Surgical History Past Surgical History: Reports: Hip Replacement, Orthopedic Surgery - left shoulder surgery, bilateral hip surgeries; Lt foot, Tonsillectomy, Tubal Ligation Social History Smoking Status: Never Smoker - Advance Directive Resuscitation Status: Full Code Family History Family History: Reviewed & Not Pertinent Parental Family History Reviewed: Yes - No significant family history as per the patient Children Family History Reviewed: Yes Sibling(s) Family History Reviewed.: Yes Medication/Allergy Home Medications: Tramadol HCl [Ultram 50 mg Tablet] 50 - 100 mg PO ASDIR PRN #30 tablet 04/09/14 Levothyroxine Sodium [Synthroid 0.112 mg Tablet] 112 mcg PO DAILY #14 tablet 07/09/18 Calcium Citrate/Vitamin D3 [Calcium Citrate - Vit D3 Tab] 1 tab PO DAILY 07/30/18 Duloxetine HCl 60 mg PO DAILY 07/30/18 Esomeprazole Magnesium 40 mg PO DAILY 07/30/18 Fish Oil/Dha/Epa [Fish Oil 1,200 mg Fish Oil] 1 each PO DAILY 07/30/18 Folic Acid [Folvite 1 mg Tablet] 1 mg PO DAILY 07/30/18 Leflunomide 10 mg PO DAILY 07/30/18 Lorazepam [Ativan 0.5 mg Tablet] 0.5 mg PO Q4 PRN 07/30/18 Losartan Potassium 100 mg PO DAILY 07/30/18 Multivit-Min/Iron/Folic/Lutein [Centrum Silver Women Tablet] 1 each PO DAILY 0 07/30/18 Prednisone [Deltasone 5 mg Tablet] 5 mg PO DAILY 07/30/18 Rosuvastatin Calcium 5 mg PO DAILY 07/30/18 Allergies/Adverse Reactions: oxycodone HCl [From Percocet] Allergy (Mild, Verified 09/29/18 13:18) Itching pneumococcal 7-valent conjugate to [From Prevnar] Allergy (Verified 09/29/18 13:18) Review of Systems Constitutional: PRESENT: fatigue, fever(s), weakness Eyes: ABSENT: visual disturbances Ears: ABSENT: hearing changes Nose, Mouth, and Throat: PRESENT: other - Planing of stuffy nose. ABSENT: sore throat Respiratory: ABSENT: cough, dyspnea, hemoptysis, sputum Gastrointestinal: PRESENT: nausea Physical Exam Vital Signs: Temp Pulse Resp BP Pulse Ox 98.2 F 113 H 17 122/62 99 09/29/18 15:52 09/29/18 13:33 09/29/18 15:01 09/29/18 15:01 09/29/18 15:01 Intake & Output 09/28/18 09/29/18 09/30/18 06:59 06:59 06:59 Intake Total 1999 Balance 1999 Weight 78.6 kg General appearance: PRESENT: no acute distress Head exam: PRESENT: atraumatic Eye exam: PRESENT: PERRLA Mouth exam: PRESENT: moist, tongue midline Teeth exam: PRESENT: poor dentation Neck exam: ABSENT: carotid bruit, JVD, lymphadenopathy, thyromegaly Respiratory exam: PRESENT: decreased breath sounds Cardiovascular exam: PRESENT: tachycardia GI/Abdominal exam: PRESENT: normal bowel sounds, soft. ABSENT: distended, guarding, mass, organolmegaly, rebound, tenderness Extremities exam: PRESENT: full ROM. ABSENT: calf tenderness, clubbing, pedal edema Neurological exam: PRESENT: alert, awake, oriented to person, oriented to place, oriented to time, oriented to situation, CN II-XII grossly intact. ABSENT: motor sensory deficit Psychiatric exam: PRESENT: appropriate affect, normal mood. ABSENT: homicidal ideation, suicidal ideation Results Laboratory Results: 09/29/18 14:15 09/29/18 14:15 09/29/18 09/29/18 09/29/18 14:15 14:15 14:15 WBC 2.1 L RBC 3.19 L Hgb 9.1 L Hct 26.9 L MCV 84 MCH 28.6 MCHC 34.0 RDW 23.4 H Plt Count 151 Seg Neutrophils % Not Reportable Lymphocytes % Not Reportable Monocytes % Not Reportable Eosinophils % Not Reportable Basophils % Not Reportable Absolute Neutrophils Not Reportable Absolute Lymphocytes Not Reportable Absolute Monocytes Not Reportable Absolute Eosinophils Not Reportable Absolute Basophils Not Reportable VBG pH 7.38 VBG pCO2 45.0 VBG HCO3 26.3 VBG Base Excess 0.9 Sodium 132.1 L Potassium 3.7 Chloride 97 L Carbon Dioxide 26 Anion Gap 9 BUN 10 Creatinine 0.63 Est GFR ( Amer) > 60 Est GFR (Non-Af Amer) > 60 Glucose 134 H Lactic Acid Calcium 9.0 Total Bilirubin 0.6 AST 28 ALT 28 Alkaline Phosphatase 68 Total Protein 6.5 Albumin 3.5 Lipase 16.5 L Urine Color Urine Appearance Urine pH Ur Specific [place] Urine Protein Urine Glucose (UA) Urine Ketones Urine Blood Urine Nitrite Ur Leukocyte Esterase Urine WBC (Auto) Urine RBC (Auto) Blood Type Antibody Screen 09/29/18 09/29/18 09/29/18 14:15 14:47 15:02 WBC RBC Hgb Hct MCV MCH MCHC RDW Plt Count Seg Neutrophils % Lymphocytes % Monocytes % Eosinophils % Basophils % Absolute Neutrophils Absolute Lymphocytes Absolute Monocytes Absolute Eosinophils Absolute Basophils VBG pH VBG pCO2 VBG HCO3 VBG Base Excess Sodium Potassium Chloride Carbon Dioxide Anion Gap BUN Creatinine Est GFR ( Amer) Est GFR (Non-Af Amer) Glucose Lactic Acid 1.3 Calcium Total Bilirubin AST ALT Alkaline Phosphatase Total Protein Albumin Lipase Urine Color TAURUS Urine Appearance SLIGHTLY-CLOUDY Urine pH 6.0 Ur Specific [place] 1.016 Urine Protein 30 H Urine Glucose (UA) NEGATIVE Urine Ketones NEGATIVE Urine Blood NEGATIVE Urine Nitrite NEGATIVE Ur Leukocyte Esterase NEGATIVE Urine WBC (Auto) 2 Urine RBC (Auto) 0 Blood Type A POSITIVE Antibody Screen NEGATIVE Impressions: Chest X-Ray 09/29/18 13:39 IMPRESSION: 1. Probable trace right pleural effusion. 2. Greatly improved appearance of bilateral pulmonary nodules. Assessment and Plan - Diagnosis (1) Febrile neutropenia Is this a current diagnosis for this admission?: Yes Plan: 09/29/2018-patient is getting admitted for febrile neutropenia. Plan to admit her in telemetry she is a full code. Started on cefepime 2 g IV twice daily. To start on IV fluids normal saline at 75 cc/h. GI prophylaxis and DVT prophylaxis were provided. Consultation with hematology was requested. Plan to repeat the labs tomorrow. To him cultures blood cultures urine cultures are pending. Neutropenia most likely secondary to chemo therapy patient is on for uterine cancer. Placed on reverse isolation. (2) Malignant neoplasm of uterus Qualifiers: Malignant neoplasm of uterus location: unspecified site of uterus Qualified Code(s): C55 - Malignant neoplasm of uterus, part unspecified Is this a current diagnosis for this admission?: No Plan: 09/29/2018 patient has history of uterine cancer with metastasis to lungs. Patient is receiving chemotherapy last chemotherapy 11 days ago. Consultation with Dr. Schumacher was requested. (3) HTN (hypertension) Is this a current diagnosis for this admission?: No Plan: 09/29/2018-and has history of hypertension blood pressure here is 122/62. Patient is on lisinopril at home. Plan is to resume the medication during the hospital stay. (4) Anemia Is this a current diagnosis for this admission?: Yes Plan: 09/29/2018-patient's hemoglobin is 9.1 on admission previous one is around 11.8. Drop in hemoglobin may be secondary to chemotherapy. Anemia management as per Dr. Schumacher. (5) Rheumatoid arthritis Is this a current diagnosis for this admission?: No Plan: 09/29/2018-patient has history of rheumatoid arthritis she is on prednisone at home and also receiving oxycodone 5 mg 1-2 tablets every 6 as needed for pain. Those medications are going to be restarted during the hospital stay. - Time Time Spent with patient: 15-24 minutes Medications reviewed and adjusted accordingly: Yes Anticipated discharge: Home
[2018-09-29] MEDS ORDERED: OXYCODONE HCL SR 10 MG TABLET PO ONE (17:45)
--- NOTE | 2018-09-29 17:50 | ADVANCED CARE ---
- Diagnosis (1) Febrile neutropenia Diagnosis Current: Yes (2) Malignant neoplasm of uterus Diagnosis Current: No (3) HTN (hypertension) Diagnosis Current: No (4) Anemia Diagnosis Current: Yes (5) Rheumatoid arthritis Diagnosis Current: No Attendance: Patient's Kendall Baird is in the room during the discussion. Resuscitation Status: Full Code Discussion: Patient said she has a living will. She wants to be full code. Patient's also states her is the decision maker. Care Planning Goals: Discussed the care plans with the patient. Plan is to treat the infection and fever consult with Dr. Schumacher for management of the uterine cancer with m etastases to the lungs. Time Spent: Spent more than 15 minutes discussing the advance care plan.
[2018-09-29] MEDS ORDERED: LEVOTHYROXINE SODIUM 0.112 MG TABLET PO ONE (18:00)
[2018-09-29 18:47] LABS: CREATINE KINASE MB 0.77 ng/mL (<4.55)
[2018-09-29 18:49] LABS: TROPONIN I < 0.012 ng/mL
[2018-09-29] MEDS: LEVOTHYROXINE SODIUM 0.112 MG TABLET PO SCH (18:53)
[2018-09-29] MEDS: FOLIC ACID 1 MG TABLET PO SCH (18:53)
[2018-09-29] MEDS: FAMOTIDINE 20 MG TABLET PO SCH ×2 (18:56→21:02)
[2018-09-29] MEDS: PREDNISONE 10 MG TABLET PO SCH (19:01)
[2018-09-29] MEDS: DOCUSATE SODIUM 100 MG CAPSULE PO SCH (19:07)
[2018-09-29] MEDS: LORAZEPAM 0.5 MG TABLET PO PRN (19:07)
[2018-09-29] MEDS: ATORVASTATIN CALCIUM 10 MG TABLET PO SCH (21:02)
--- NOTE | 2018-09-29 21:06 | EKG REPORT ---
SEVERITY:- ABNORMAL ECG - SINUS RHYTHM NONSPECIFIC T ABNORMALITIES, LATERAL LEADS : Confirmed by: Andrew Iniguez MD 29-Sep-2018 21:05:54
[2018-09-29] MEDS: OXYCODONE HCL SR 10 MG TABLET PO SCH (21:32)
[2018-09-29 21:53] LABS: CREATINE KINASE MB 0.92 ng/mL (<4.55)
[2018-09-29 21:56] LABS: TROPONIN I < 0.012 ng/mL
[2018-09-29] MEDS: OXYCODONE HCL IR 5 MG TABLET PO PRN (22:29)
[2018-09-30 03:39] LABS: HEMATOCRIT 23.4 % (36.0-47.0); MEAN CORPUSCULAR HEMOGLOBIN 28.6 pg (27.0-33.4); MEAN CORPUSCULAR HGB CONC 33.9 g/dL (32.0-36.0); MEAN CORPUSCULAR VOLUME 84 fl (80-97); PLATELET COUNT 117 10^3/uL (150-450); RED BLOOD COUNT 2.77 10^6/uL (3.72-5.28); RED CELL DISTRIBUTION WIDTH 24.2 % (11.5-14.0); WHITE BLOOD COUNT 2.3 10^3/uL (4.0-10.5)
[2018-09-30 03:47] LABS: HEMOGLOBIN 7.9 g/dL (12.0-15.5)
[2018-09-30 04:03] LABS: ABSOLUTE LYMPHOCYTES# (MANUAL) 0.8 10^3/uL (0.5-4.7); ABSOLUTE MONOCYTES # (MANUAL) 1.1 10^3/uL (0.1-1.4); ABSOLUTE NEUTROPHILS# (MANUAL) 0.4 10^3/uL (1.7-8.2); BAND NEUTROPHILS % (MANUAL) 2 % (3-5); BASOPHILS % (MANUAL) 1 % (0-2); EOSINOPHILS % (MANUAL) 0 % (0-6); LYMPHOCYTES % (MANUAL) 33 % (13-45); MONOCYTES % (MANUAL) 49 % (3-13); SEGMENTED NEUTROPHILS % (MAN) 14 % (42-78); TOTAL CELLS COUNTED 100
[2018-09-30 04:05] LABS: ALANINE AMINOTRANSFERASE 21 U/L (9-52); ALBUMIN 2.7 g/dL (3.5-5.0); ALKALINE PHOSPHATASE 52 U/L (38-126); ANION GAP 5 (5-19); ASPARTATE AMINO TRANSFERASE 23 U/L (14-36); BILIRUBIN,DIRECT 0.2 mg/dL (0.0-0.4); BILIRUBIN,TOTAL 0.3 mg/dL (0.2-1.3); BLOOD UREA NITROGEN 8 mg/dL (7-20); CARBON DIOXIDE 23 mmol/L (22-30); CHLORIDE 108 mmol/L (98-107); CREATINE KINASE 85 U/L (30-135); GLUCOSE 116 mg/dL (75-110); POTASSIUM 3.6 mmol/L (3.6-5.0); SODIUM 136.3 mmol/L (137-145); TOTAL PROTEIN 5.3 g/dL (6.3-8.2)
[2018-09-30 04:06] LABS: ANISOCYTOSIS 3+; HYPOCHROMASIA 1+; PLATELET COMMENT DECREASED; POLYCHROMASIA SLIGHT
[2018-09-30 04:07] LABS: TOXIC GRANULATION 2+
[2018-09-30 04:11] LABS: CREATINE KINASE MB 0.71 ng/mL (<4.55); NT PRO BNP 222 pg/mL (5-900)
[2018-09-30 04:13] LABS: TROPONIN I < 0.012 ng/mL
[2018-09-30] MEDS ORDERED: CEFEPIME 2 GM/D5W RTU 2 GM/50 ML RTUPB IV ONE (05:24)
[2018-09-30] MEDS: PANTOPRAZOLE SODIUM 40 MG TABLET.DR PO SCH (05:42)
[2018-09-30] MEDS ORDERED: CEFEPIME 2 GM/D5W RTU 2 GM/50 ML RTUPB IV SCH (06:00)
[2018-09-30] MEDS: CALCIUM CARBONATE 250 MG/VITAMIN D3 125 UNIT TABLET PO SCH (09:20)
[2018-09-30] MEDS: LORAZEPAM 0.5 MG TABLET PO PRN ×2 (09:21→17:28)
[2018-09-30] MEDS: OXYCODONE HCL IR 5 MG TABLET PO PRN (09:21)
[2018-09-30] MEDS: DOCUSATE SODIUM 100 MG CAPSULE PO SCH ×2 (09:22→17:28)
[2018-09-30] MEDS: OMEGA-3 ACID ETHYL ESTERS 1 GM CAPSULE PO SCH (09:22)
[2018-09-30] MEDS: FOLIC ACID 1 MG TABLET PO SCH (09:23)
[2018-09-30] MEDS: FAMOTIDINE 20 MG TABLET PO SCH ×2 (09:23→21:08)
[2018-09-30] MEDS: DULOXETINE HCL 30 MG CAPSULE.DR PO SCH (09:23)
[2018-09-30] MEDS: PREDNISONE 10 MG TABLET PO SCH ×2 (09:24→17:21)
[2018-09-30] MEDS: OXYCODONE HCL SR 10 MG TABLET PO SCH ×2 (09:25→21:01)
[2018-09-30] MEDS: ENOXAPARIN SODIUM INJ 30 MG/0.3 ML DISP.SYRIN SUBCUT SCH (09:25)
[2018-09-30] MEDS ORDERED: LOSARTAN POTASSIUM 50 MG TABLET PO SCH (10:00)
[2018-09-30] MEDS: LEVOTHYROXINE SODIUM 0.112 MG TABLET PO SCH (11:15)
[2018-09-30] MEDS: LEFLUNOMIDE 20 MG TABLET PO SCH (11:15)
[2018-09-30] MEDS: MULTIVITAMINS W-IRON TABLET, CHEWABLE PO SCH (11:15)
--- NOTE | 2018-09-30 11:17 | PDOC CONSULTATION ---
Consultation Consult Date: 09/30/18 Consult reason:: Hematology/Oncology consultation was requested for patient with neutropenic fever on active chemotherapy. History of Present Illness Admission Date/PCP: 09/29/18 16:55 CLAUDIA LUQUE MD History of Present Illness: PRASHANTH MARIANO is a 72 year old female who was diagnosed with Stage IV uterine cancer in Jun of this year. She received Carboplatin/Taxotere on 09/18/2018. Yesterday, she developed fever and fatigue. She has had a cough and sinus congestion for the past few days. She presented to the ED and was found to have a temp of 100.7 and an ANC of 0.2. She was cultured and started on Cefapime. Today, she states that she is still feeling very tired and worn out. Her appetite is poor. She is a little constipated. Past Medical History Cardiac Medical History: Reports: Hypertension Denies: Coronary Artery Disease, Myocardial Infarction Pulmonary Medical History: Denies: Asthma, Bronchitis, Chronic Obstructive Pulmonary Disease (COPD), Pneumonia Neurological Medical History: Denies: Seizures Malignancy Medical History: Reports: Other - Uterine cancer with mets to lungs 2019 GI Medical History: Reports: Gastroesophageal Reflux Disease Musculoskeltal Medical History: Reports: Arthritis - RA Hematology: Denies: Anemia Past Surgical History Past Surgical History: Reports: Hip Replacement, Orthopedic Surgery - left shoulder surgery, bilateral hip surgeries; Lt foot, Tonsillectomy, Tubal Ligation Social History Occupation: retired from the [employer] Smoking Status: Former Smoker Number of Years Smokin Last Time Smoked: 2008 Frequency of Alcohol Use: None Hx Recreational Drug Use: No Hx Prescription Drug Abuse: No - Advance Directive Resuscitation Status: Full Code Family History Parental Family History Reviewed: Yes - Mother with lung cancer. Father with CVA. Children Family History Reviewed: Yes Sibling(s) Family History Reviewed.: Yes Medication/Allergy Home Medications: Tramadol HCl [Ultram 50 mg Tablet] 50 - 100 mg PO ASDIR PRN #30 tablet 04/09/14 Levothyroxine Sodium [Synthroid 0.112 mg Tablet] 112 mcg PO DAILY #14 tablet 07/09/18 Calcium Citrate/Vitamin D3 [Calcium Citrate - Vit D3 Tab] 1 tab PO DAILY 07/30/18 Duloxetine HCl 60 mg PO DAILY 07/30/18 Esomeprazole Magnesium 40 mg PO DAILY 07/30/18 Fish Oil/Dha/Epa [Fish Oil 1,200 mg Fish Oil] 1 each PO DAILY 07/30/18 Folic Acid [Folvite 1 mg Tablet] 1 mg PO DAILY 07/30/18 Leflunomide 10 mg PO DAILY 07/30/18 Lorazepam [Ativan 0.5 mg Tablet] 0.5 mg PO Q4 PRN 07/30/18 Losartan Potassium 100 mg PO DAILY 07/30/18 Multivit-Min/Iron/Folic/Lutein [Centrum Silver Women Tablet] 1 each PO DAILY 07/30/18 Prednisone [Deltasone 5 mg Tablet] 5 mg PO DAILY 07/30/18 Rosuvastatin Calcium 5 mg PO DAILY 07/30/18 Allergies/Adverse Reactions: pneumococcal 7-valent conjugate to [From Prevnar] Allergy (Verified 09/29/18 13:18) acetaminophen [From Percocet] Adverse Reaction (Severe, Verified 09/29/18 18:14) Urticaria oxycodone [From Percocet] Adverse Reaction (Severe, Verified 09/29/18 18:14) Urticaria Review of Systems Constitutional: PRESENT: chills, fever(s) Eyes: ABSENT: visual disturbances Ears: ABSENT: hearing changes Nose, Mouth, and Throat: PRESENT: other - Sinus pressure, congestion, and increased mucus. Cardiovascular: ABSENT: chest pain Respiratory: PRESENT: cough. ABSENT: dyspnea Gastrointestinal: PRESENT: constipation. ABSENT: nausea Genitourinary: ABSENT: dysuria Musculoskeletal: ABSENT: muscle weakness Integumentary: ABSENT: rash Neurological: PRESENT: dizziness Endocrine: PRESENT: other - Extreme fatigue. Physical Exam Vital Signs: Temp Pulse Resp BP Pulse Ox 99.1 F 98 16 117/45 L 94 09/30/18 09:02 09/30/18 09:02 09/30/18 09:02 09/30/18 09:02 09/30/18 09:02 Intake & Output 09/29/18 09/30/18 10/01/18 06:59 06:59 06:59 Intake Total 2150 Balance 2150 Weight 82.8 kg General appearance: PRESENT: well-developed, well-nourished Exam: 72 year old female. Head exam: PRESENT: normocephalic Eye exam: PRESENT: EOMI, PERRLA Mouth exam: PRESENT: tongue midline Neck exam: ABSENT: lymphadenopathy, tenderness Respiratory exam: PRESENT: clear to auscultation leah, unlabored Cardiovascular exam: PRESENT: RRR GI/Abdominal exam: PRESENT: soft. ABSENT: organolmegaly, tenderness Extremities exam: ABSENT: pedal edema Musculoskeletal exam: PRESENT: normal inspection Neurological exam: PRESENT: alert, awake, oriented to person, oriented to place, oriented to time, oriented to situation Psychiatric exam: PRESENT: appropriate affect Skin exam: PRESENT: normal color Results Laboratory Results: 09/30/18 03:12 09/30/18 03:12 09/29/18 09/29/18 09/29/18 14:15 14:15 14:15 WBC 2.1 L RBC 3.19 L Hgb 9.1 L Hct 26.9 L MCV 84 MCH 28.6 MCHC 34.0 RDW 23.4 H Plt Count 151 Seg Neutrophils % Not Reportable Lymphocytes % Not Reportable Monocytes % Not Reportable Eosinophils % Not Reportable Basophils % Not Reportable Absolute Neutrophils Not Reportable Absolute Lymphocytes Not Reportable Absolute Monocytes Not Reportable Absolute Eosinophils Not Reportable Absolute Basophils Not Reportable VBG pH 7.38 VBG pCO2 45.0 VBG HCO3 26.3 VBG Base Excess 0.9 Sodium 132.1 L Potassium 3.7 Chloride 97 L Carbon Dioxide 26 Anion Gap 9 BUN 10 Creatinine 0.63 Est GFR ( Amer) > 60 Est GFR (Non-Af Amer) > 60 Glucose 134 H Lactic Acid Calcium 9.0 Magnesium Total Bilirubin 0.6 AST 28 ALT 28 Alkaline Phosphatase 68 Total Protein 6.5 Albumin 3.5 Lipase 16.5 L TSH Urine Color Urine Appearance Urine pH Ur Specific [place] Urine Protein Urine Glucose (UA) Urine Ketones Urine Blood Urine Nitrite Ur Leukocyte Esterase Urine WBC (Auto) Urine RBC (Auto) Blood Type Antibody Screen 09/29/18 09/29/18 09/29/18 14:15 14:47 15:02 WBC RBC Hgb Hct MCV MCH MCHC RDW Plt Count Seg Neutrophils % Lymphocytes % Monocytes % Eosinophils % Basophils % Absolute Neutrophils Absolute Lymphocytes Absolute Monocytes Absolute Eosinophils Absolute Basophils VBG pH VBG pCO2 VBG HCO3 VBG Base Excess Sodium Potassium Chloride Carbon Dioxide Anion Gap BUN Creatinine Est GFR ( Amer) Est GFR (Non-Af Amer) Glucose Lactic Acid 1.3 Calcium Magnesium Total Bilirubin AST ALT Alkaline Phosphatase Total Protein Albumin Lipase TSH Urine Color TAURUS Urine Appearance SLIGHTLY-CLOUDY Urine pH 6.0 Ur Specific [place] 1.016 Urine Protein 30 H Urine Glucose (UA) NEGATIVE Urine Ketones NEGATIVE Urine Blood NEGATIVE Urine Nitrite NEGATIVE Ur Leukocyte Esterase NEGATIVE Urine WBC (Auto) 2 Urine RBC (Auto) 0 Blood Type A POSITIVE Antibody Screen NEGATIVE 09/30/18 09/30/18 09/30/18 03:12 03:12 03:12 WBC 2.3 L RBC 2.77 L Hgb 7.9 L Hct 23.4 L MCV 84 MCH 28.6 MCHC 33.9 RDW 24.2 H Plt Count 117 L Seg Neutrophils % Not Reportable Lymphocytes % Not Reportable Monocytes % Not Reportable Eosinophils % Not Reportable Basophils % Not Reportable Absolute Neutrophils Not Reportable Absolute Lymphocytes Not Reportable Absolute Monocytes Not Reportable Absolute Eosinophils Not Reportable Absolute Basophils Not Reportable VBG pH VBG pCO2 VBG HCO3 VBG Base Excess Sodium 136.3 L Potassium 3.6 Chloride 108 H Carbon Dioxide 23 Anion Gap 5 BUN 8 Creatinine 0.59 Est GFR ( Amer) > 60 Est GFR (Non-Af Amer) > 60 Glucose 116 H Lactic Acid Calcium 8.0 L Magnesium 1.5 L Total Bilirubin 0.3 AST 23 ALT 21 Alkaline Phosphatase 52 Total Protein 5.3 L Albumin 2.7 L Lipase TSH 6.14 H Urine Color Urine Appearance Urine pH Ur Specific [place] Urine Protein Urine Glucose (UA) Urine Ketones Urine Blood Urine Nitrite Ur Leukocyte Esterase Urine WBC (Auto) Urine RBC (Auto) Blood Type Antibody Screen 09/29/18 09/29/18 09/29/18 14:15 14:15 20:50 Creatine Kinase 97 81 CK-MB (CK-2) 0.77 Troponin I < 0.012 NT-Pro-B Natriuret Pep 09/29/18 09/30/18 09/30/18 20:50 03:12 03:12 Creatine Kinase 85 CK-MB (CK-2) 0.92 0.71 Troponin I < 0.012 < 0.012 NT-Pro-B Natriuret Pep 222 Impressions: Chest X-Ray 09/29/18 13:39 IMPRESSION: 1. Probable trace right pleural effusion. 2. Greatly improved appearance of bilateral pulmonary nodules. Status: Image reviewed by me Assessment & Plan - Diagnosis (1) Febrile neutropenia Is this a current diagnosis for this admission?: Yes Plan: Today is Day 12 after chemo. Her neutropenia should be resolving within the next few days. Await blood and urine cultures. Most likely source is her sinuses. Will continue Cefapime. (2) Malignant neoplasm of uterus Qualifiers: Malignant neoplasm of uterus location: unspecified site of uterus Qualified Code(s): C55 - Malignant neoplasm of uterus, part unspecified Is this a current diagnosis for this admission?: No Plan: With lung mets. She is scheduled for repeat CT scan this Wed (3 days from now). If she is still here, will arrange as inpatient. Otherwise, hope to obtain outpatient CT as planned and then follow-up with [facility] late this week. (3) Anemia Qualifiers: Other causes of anemia: antineoplastic chemotherapy Is this a current diagnosis for this admission?: Yes Plan: The drop in HGB is most likely dilutional. Will continue to monitor and c onsider transfusion if needed. - Plan Summary Plan Summary: I will continue to follow her. Please call with any concerns.
[2018-09-30] MEDS ORDERED: OXYCODONE HCL IR 5 MG TABLET PO PRN (13:14)
[2018-09-30] MEDS ORDERED: HYDROCHLOROTHIAZIDE 12.5 MG TABLET PO PRN (13:14)
--- NOTE | 2018-09-30 13:19 | PDOC PROGRESS REPORT ---
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 As per the family she has a fever of 100.7 yesterday associated with chills and sweating. She is also complaining of stuffy nose. Denies any chest pains or cough. Complaining of nausea decreased appetite. Denies any constipation diarrhea. Denies any rashes. Received chemotherapy 11 days ago. Most with Dr. Schumacher. In the emergency room workup was done and found to have a lipase account 2.1 and neutrophils 8, with fever of 100.7. Blood pressures are stable. Chest x-ray was negative. She received cefepime in the ER and medical consult was called for admission. 09/[id number]-old female with history of uterine cancer on chemotherapy metastasis to the lungs, history of rheumatoid arthritis hypertension hyperlipidemia admitted with fever. No acute events. Afebrile. On cefepime. Blood cultures are negative so far. Pulse ox on room air is 94%. Comfortably in the bed denies any complaints. Dr. Schumacher saw the patient this morning. Reason For Visit: FEVER Physical Exam Vital Signs: Temp Pulse Resp BP Pulse Ox 99.1 F 98 16 117/45 L 94 09/30/18 09:02 09/30/18 09:02 09/30/18 09:02 09/30/18 09:02 09/30/18 09:02 Intake & Output 09/29/18 09/30/18 10/01/18 06:59 06:59 06:59 Intake Total 2150 Balance 2150 Weight 82.8 kg General appearance: PRESENT: no acute distress Head exam: PRESENT: atraumatic Eye exam: PRESENT: PERRLA Mouth exam: PRESENT: moist, tongue midline Neck exam: ABSENT: carotid bruit, JVD, lymphadenopathy, thyromegaly Respiratory exam: PRESENT: clear to auscultation leah. ABSENT: rales, rhonchi, wheezes Cardiovascular exam: PRESENT: tachycardia GI/Abdominal exam: PRESENT: normal bowel sounds, soft. ABSENT: distended, guarding, mass, organolmegaly, rebound, tenderness Extremities exam: PRESENT: full ROM. ABSENT: calf tenderness, clubbing, pedal edema Neurological exam: PRESENT: alert, awake, oriented to person, oriented to place, oriented to time, oriented to situation, CN II-XII grossly intact. ABSENT: motor sensory deficit Psychiatric exam: PRESENT: appropriate affect, normal mood. ABSENT: homicidal ideation, suicidal ideation Results Laboratory Results: 09/30/18 03:12 09/30/18 03:12 09/29/18 09/29/18 09/29/18 14:15 14:15 14:15 WBC 2.1 L RBC 3.19 L Hgb 9.1 L Hct 26.9 L MCV 84 MCH 28.6 MCHC 34.0 RDW 23.4 H Plt Count 151 Seg Neutrophils % Not Reportable Lymphocytes % Not Reportable Monocytes % Not Reportable Eosinophils % Not Reportable Basophils % Not Reportable Absolute Neutrophils Not Reportable Absolute Lymphocytes Not Reportable Absolute Monocytes Not Reportable Absolute Eosinophils Not Reportable Absolute Basophils Not Reportable VBG pH 7.38 VBG pCO2 45.0 VBG HCO3 26.3 VBG Base Excess 0.9 Sodium 132.1 L Potassium 3.7 Chloride 97 L Carbon Dioxide 26 Anion Gap 9 BUN 10 Creatinine 0.63 Est GFR ( Amer) > 60 Est GFR (Non-Af Amer) > 60 Glucose 134 H Lactic Acid Calcium 9.0 Magnesium Total Bilirubin 0.6 AST 28 ALT 28 Alkaline Phosphatase 68 Total Protein 6.5 Albumin 3.5 Lipase 16.5 L TSH Urine Color Urine Appearance Urine pH Ur Specific [place] Urine Protein Urine Glucose (UA) Urine Ketones Urine Blood Urine Nitrite Ur Leukocyte Esterase Urine WBC (Auto) Urine RBC (Auto) Blood Type Antibody Screen 09/29/18 09/29/18 09/29/18 14:15 14:47 15:02 WBC RBC Hgb Hct MCV MCH MCHC RDW Plt Count Seg Neutrophils % Lymphocytes % Monocytes % Eosinophils % Basophils % Absolute Neutrophils Absolute Lymphocytes Absolute Monocytes Absolute Eosinophils Absolute Basophils VBG pH VBG pCO2 VBG HCO3 VBG Base Excess Sodium Potassium Chloride Carbon Dioxide Anion Gap BUN Creatinine Est GFR ( Amer) Est GFR (Non-Af Amer) Glucose Lactic Acid 1.3 Calcium Magnesium Total Bilirubin AST ALT Alkaline Phosphatase Total Protein Albumin Lipase TSH Urine Color TAURUS Urine Appearance SLIGHTLY-CLOUDY Urine pH 6.0 Ur Specific [place] 1.016 Urine Protein 30 H Urine Glucose (UA) NEGATIVE Urine Ketones NEGATIVE Urine Blood NEGATIVE Urine Nitrite NEGATIVE Ur Leukocyte Esterase NEGATIVE Urine WBC (Auto) 2 Urine RBC (Auto) 0 Blood Type A POSITIVE Antibody Screen NEGATIVE 09/30/18 09/30/18 09/30/18 03:12 03:12 03:12 WBC 2.3 L RBC 2.77 L Hgb 7.9 L Hct 23.4 L MCV 84 MCH 28.6 MCHC 33.9 RDW 24.2 H Plt Count 117 L Seg Neutrophils % Not Reportable Lymphocytes % Not Reportable Monocytes % Not Reportable Eosinophils % Not Reportable Basophils % Not Reportable Absolute Neutrophils Not Reportable Absolute Lymphocytes Not Reportable Absolute Monocytes Not Reportable Absolute Eosinophils Not Reportable Absolute Basophils Not Reportable VBG pH VBG pCO2 VBG HCO3 VBG Base Excess Sodium 136.3 L Potassium 3.6 Chloride 108 H Carbon Dioxide 23 Anion Gap 5 BUN 8 Creatinine 0.59 Est GFR ( Amer) > 60 Est GFR (Non-Af Amer) > 60 Glucose 116 H Lactic Acid Calcium 8.0 L Magnesium 1.5 L Total Bilirubin 0.3 AST 23 ALT 21 Alkaline Phosphatase 52 Total Protein 5.3 L Albumin 2.7 L Lipase TSH 6.14 H Urine Color Urine Appearance Urine pH Ur Specific [place] Urine Protein Urine Glucose (UA) Urine Ketones Urine Blood Urine Nitrite Ur Leukocyte Esterase Urine WBC (Auto) Urine RBC (Auto) Blood Type Antibody Screen 09/29/18 09/29/18 09/29/18 14:15 14:15 20:50 Creatine Kinase 97 81 CK-MB (CK-2) 0.77 Troponin I < 0.012 NT-Pro-B Natriuret Pep 09/29/18 09/30/18 09/30/18 20:50 03:12 03:12 Creatine Kinase 85 CK-MB (CK-2) 0.92 0.71 Troponin I < 0.012 < 0.012 NT-Pro-B Natriuret Pep 222 Impressions: Chest X-Ray 09/29/18 13:39 IMPRESSION: 1. Probable trace right pleural effusion. 2. Greatly improved appearance of bilateral pulmonary nodules. Assessment and Plan - Diagnosis (1) Febrile neutropenia Is this a current diagnosis for this admission?: Yes Plan: 09/29/2018-patient is getting admitted for febrile neutropenia. Plan to admit her in telemetry she is a full code. Started on cefepime 2 g IV twice daily. To start on IV fluids normal saline at 75 cc/h. GI prophylaxis and DVT prophylaxis were provided. Consultation with hematology was requested. Plan to repeat the labs tomorrow. To him cultures blood cultures urine cultures are pending. Neutropenia most likely secondary to chemo therapy patient is on for uterine cancer. Placed on reverse isolation. 09/30/2018 patient still have a low-grade fever 99.1. On cefepime. Blood cultures are negative so far. WBC count is 2.3 today. Opinion most likely secondary to chemotherapy. Patient is on reverse isolation. And is to continue the present management. (2) Malignant neoplasm of uterus Qualifiers: Malignant neoplasm of uterus location: unspecified site of uterus Qualified Code(s): C55 - Malignant neoplasm of uterus, part unspecified Is this a current diagnosis for this admission?: No Plan: 09/29/2018 patient has history of uterine cancer with metastasis to lungs. Patient is receiving chemotherapy last chemotherapy 11 days ago. Consultation with Dr. Schumacher was requested. 09/30/2018-patient has history of uterine cancer with metastasis to the lungs management as per dr Schumacher (3) HTN (hypertension) Is this a current diagnosis for this admission?: No Plan: 09/29/2018-and has history of hypertension blood pressure here is 122/62. Patient is on lisinopril at home. Plan is to resume the medication during the hospital stay. 09/30/2018-patient's latest blood pressure is 117/45. Taking losartan 100 mg p.o. daily at home plan is to decrease it to 50 mg p.o. daily. (4) Anemia Qualifiers: Other causes of anemia: antineoplastic chemotherapy Is this a current diagnosis for this admission?: Yes Plan: 09/29/2018-patient's hemoglobin is 9.1 on admission previous one is around 11.8. Drop in hemoglobin may be secondary to chemotherapy. Anemia management as per Dr. Schumacher. 09/30/2018-latest hemoglobin is 7.9 most likely secondary to hemodilution anemia management as per Dr. Schumacher. (5) Rheumatoid arthritis Is this a current diagnosis for this admission?: No Plan: 09/29/2018-patient has history of rheumatoid arthritis she is on prednisone at home and also receiving oxycodone 5 mg 1-2 tablets every 6 as needed for pain. Those medications are going to be restarted during the hospital stay. 09/30/2018-patient has history of rheumatoid arthritis and oxycodone at home and also receiving prednisone plan is to continue the present management. - Time Time Spent with patient: 15-24 minutes Medications reviewed and adjusted accordingly: Yes Anticipated discharge: Home
[2018-09-30] MEDS: LEVOTHYROXINE SODIUM 0.1 MG TABLET PO SCH (16:29)
[2018-09-30] MEDS: LOSARTAN POTASSIUM 50 MG TABLET PO SCH (16:29)
[2018-09-30] MEDS: CEFEPIME HCL 2 GM in DEXTROSE 5%-WATER 50 ML IV SCH (17:27)
[2018-09-30] MEDS: CLOBETASOL PROPIONATE 0.05% CREAM 15 GM TOP SCH (17:34)
[2018-09-30] MEDS: ATORVASTATIN CALCIUM 10 MG TABLET PO SCH (21:08)
[2018-09-30] MEDS: NORMAL SALINE 1000 ML 1,000 ML IV PRN (21:10)
[2018-10-01 04:34] LABS: HEMATOCRIT 22.4 % (36.0-47.0); MEAN CORPUSCULAR HEMOGLOBIN 28.8 pg (27.0-33.4); MEAN CORPUSCULAR HGB CONC 34.7 g/dL (32.0-36.0); MEAN CORPUSCULAR VOLUME 83 fl (80-97); PLATELET COUNT 117 10^3/uL (150-450); RED BLOOD COUNT 2.69 10^6/uL (3.72-5.28); RED CELL DISTRIBUTION WIDTH 24.2 % (11.5-14.0)
[2018-10-01 04:52] LABS: ALANINE AMINOTRANSFERASE 31 U/L (9-52); ALBUMIN 2.8 g/dL (3.5-5.0); ALKALINE PHOSPHATASE 65 U/L (38-126); ANION GAP 7 (5-19); ASPARTATE AMINO TRANSFERASE 25 U/L (14-36); BILIRUBIN,DIRECT 0.3 mg/dL (0.0-0.4); BILIRUBIN,TOTAL 0.3 mg/dL (0.2-1.3); BLOOD UREA NITROGEN 4 mg/dL (7-20); CALCIUM 7.9 mg/dL (8.4-10.2); CARBON DIOXIDE 25 mmol/L (22-30); CHLORIDE 103 mmol/L (98-107); GLUCOSE 115 mg/dL (75-110); POTASSIUM 3.1 mmol/L (3.6-5.0); SODIUM 134.6 mmol/L (137-145); TOTAL PROTEIN 5.4 g/dL (6.3-8.2)
[2018-10-01 04:57] LABS: HEMOGLOBIN 7.8 g/dL (12.0-15.5)
[2018-10-01 05:01] LABS: ABSOLUTE MONOCYTES # (MANUAL) 1.5 10^3/uL (0.1-1.4); ABSOLUTE NEUTROPHILS# (MANUAL) 1.4 10^3/uL (1.7-8.2); BASOPHILS % (MANUAL) 0 % (0-2); EOSINOPHILS % (MANUAL) 0 % (0-6); LYMPHOCYTES % (MANUAL) 26 % (13-45); MONOCYTES % (MANUAL) 37 % (3-13); SEGMENTED NEUTROPHILS % (MAN) 36 % (42-78); TOTAL CELLS COUNTED 100
[2018-10-01 05:02] LABS: PLATELET COMMENT DECREASED
[2018-10-01 05:03] LABS: ANISOCYTOSIS 2+; HYPOCHROMASIA 2+; POLYCHROMASIA SLIGHT
[2018-10-01 05:04] LABS: IMMATURE MONONUCLEAR% (MANUAL) 1 % (0)
[2018-10-01] MEDS: PANTOPRAZOLE SODIUM 40 MG TABLET.DR PO SCH (06:34)
[2018-10-01] MEDS: CEFEPIME HCL 2 GM in DEXTROSE 5%-WATER 50 ML IV SCH ×2 (06:34→17:57)
[2018-10-01] MEDS ORDERED: NORMAL SALINE 250 ML IV PRN (07:47)
--- NOTE | 2018-10-01 07:54 | PDOC PROGRESS REPORT ---
Subjective Progress Note for:: 10/01/18 Subjective:: Patient feeling a bit better today. No new complaints. ROS: No dyspnea. No constipation. No nausea. Reason For Visit: FEVER Physical Exam Vital Signs: Temp Pulse Resp BP Pulse Ox 99.3 F 98 18 106/59 L 91 L 10/01/18 04:00 10/01/18 04:00 10/01/18 04:00 10/01/18 04:00 10/01/18 04:00 Intake & Output 09/30/18 10/01/18 10/02/18 06:59 06:59 06:59 Intake Total 2150 1740 Balance 2150 1740 Weight 82.8 kg 86.6 kg General appearance: PRESENT: well-developed, well-nourished Head exam: PRESENT: normocephalic Respiratory exam: PRESENT: unlabored Cardiovascular exam: PRESENT: RRR Extremities exam: ABSENT: pedal edema Neurological exam: PRESENT: alert, awake Psychiatric exam: PRESENT: appropriate affect Skin exam: PRESENT: normal color Results Laboratory Results: 10/01/18 04:15 10/01/18 04:15 09/29/18 10/01/18 10/01/18 14:47 04:15 04:15 WBC 4.0 RBC 2.69 L Hgb 7.8 L Hct 22.4 L MCV 83 MCH 28.8 MCHC 34.7 RDW 24.2 H Plt Count 117 L Seg Neutrophils % Not Reportable Lymphocytes % Not Reportable Monocytes % Not Reportable Eosinophils % Not Reportable Basophils % Not Reportable Absolute Neutrophils Not Reportable Absolute Lymphocytes Not Reportable Absolute Monocytes Not Reportable Absolute Eosinophils Not Reportable Absolute Basophils Not Reportable Sodium 134.6 L Potassium 3.1 L Chloride 103 Carbon Dioxide 25 Anion Gap 7 BUN 4 L Creatinine 0.58 Est GFR ( Amer) > 60 Est GFR (Non-Af Amer) > 60 Glucose 115 H Calcium 7.9 L Magnesium 1.4 L Total Bilirubin 0.3 AST 25 ALT 31 Alkaline Phosphatase 65 Total Protein 5.4 L Albumin 2.8 L Blood Type A POSITIVE Antibody Screen NEGATIVE 09/29/18 09/29/18 09/29/18 14:15 14:15 20:50 Creatine Kinase 97 81 CK-MB (CK-2) 0.77 Troponin I < 0.012 NT-Pro-B Natriuret Pep 0409/30/18 09/30/18 20:50 03:12 03:12 Creatine Kinase 85 CK-MB (CK-2) 0.92 0.71 Troponin I < 0.012 < 0.012 NT-Pro-B Natriuret Pep 222 Impressions: Chest X-Ray 09/29/18 13:39 IMPRESSION: 1. Probable trace right pleural effusion. 2. Greatly improved appearance of bilateral pulmonary nodules. Assessment & Plan - Diagnosis (1) Febrile neutropenia Is this a current diagnosis for this admission?: Yes Plan: Now resolved. No fever x 48 hours. ANC now >1000. (2) Malignant neoplasm of uterus Qualifiers: Malignant neoplasm of uterus location: unspecified site of uterus Qualified Code(s): C55 - Malignant neoplasm of uterus, part unspecified Is this a current diagnosis for this admission?: No Plan: She has repeat CT scheduled for Wed with follow-up [facility] TECHNICIAN appt this Monday. (3) Anemia Qualifiers: Other causes of anemia: antineoplastic chemotherapy Is this a current diagnosis for this admission?: Yes Plan: Will transfuse 2 units pRBCs today. Patient agrees. - Plan Summary Plan Summary: OK to switch to PO antibiotics and discharge home after transfusion today. Most likely source is still sinuses, so ABX appropriate for this would be acceptable. She has follow-up scheduled with me.
[2018-10-01] MEDS: LOSARTAN POTASSIUM 50 MG TABLET PO SCH (10:03)
[2018-10-01] MEDS: PREDNISONE 10 MG TABLET PO SCH ×2 (10:06→17:57)
[2018-10-01] MEDS: MAGNESIUM SULFATE/D5W 1 GM/100 ML RTUPB IV SCH ×2 (10:32→15:10)
[2018-10-01] MEDS: FAMOTIDINE 20 MG TABLET PO SCH ×2 (10:34→22:01)
[2018-10-01] MEDS: MAGNESIUM OXIDE 400 MG TABLET PO SCH ×2 (10:34→18:25)
[2018-10-01] MEDS: DULOXETINE HCL 30 MG CAPSULE.DR PO SCH (10:35)
[2018-10-01] MEDS: LEVOTHYROXINE SODIUM 0.1 MG TABLET PO SCH (10:35)
[2018-10-01] MEDS: CALCIUM CARBONATE 250 MG/VITAMIN D3 125 UNIT TABLET PO SCH (10:35)
[2018-10-01] MEDS: DOCUSATE SODIUM 100 MG CAPSULE PO SCH ×2 (10:35→18:25)
[2018-10-01] MEDS: FOLIC ACID 1 MG TABLET PO SCH (10:35)
[2018-10-01] MEDS: OMEGA-3 ACID ETHYL ESTERS 1 GM CAPSULE PO SCH (10:36)
[2018-10-01] MEDS: LEFLUNOMIDE 20 MG TABLET PO SCH (10:36)
[2018-10-01] MEDS: MULTIVITAMINS W-IRON TABLET, CHEWABLE PO SCH (10:36)
[2018-10-01] MEDS: CLOBETASOL PROPIONATE 0.05% CREAM 15 GM TOP SCH ×3 (10:37→18:26)
[2018-10-01] MEDS: ENOXAPARIN SODIUM INJ 30 MG/0.3 ML DISP.SYRIN SUBCUT SCH (11:45)
[2018-10-01 12:43] LABS: PATH REVIEW PATHOLOGIST REVIEWED
[2018-10-01 12:43] LABS: PATH REVIEW PATHOLOGIST REVIEWED
--- NOTE | 2018-10-01 14:27 | PDOC DISCHARGE SUMMARY ---
General - Admit/Disc Date/PCP Admission Date/Primary Care Provider: 09/29/18 16:55 CLAUDIA LUQUE MD Discharge Date: 10/01/18 - Discharge Diagnosis (1) Febrile neutropenia Is this a current diagnosis for this admission?: Yes Summary: 09/29/2018-patient is getting admitted for febrile neutropenia. Plan to admit her in telemetry she is a full code. Started on cefepime 2 g IV twice daily. To start on IV fluids normal saline at 75 cc/h. GI prophylaxis and DVT prophylaxis were provided. Consultation with hematology was requested. Plan to repeat the labs tomorrow. To him cultures blood cultures urine cultures are pending. Neutropenia most likely secondary to chemo therapy patient is on for uterine cancer. Placed on reverse isolation. 09/30/2018 patient still have a low-grade fever 99.1. On cefepime. Blood cultures are negative so far. WBC count is 2.3 today. Opinion most likely secondary to chemotherapy. Patient is on reverse isolation. And is to continue the present management. 10/01/[id number]-qjpt-old female with history of uterine cancer admitted with febrile neutropenia. Dr. Blank spoke to me this morning onset neutropenia is resolved. She advised that patient can go home today on p.o. antibiotic therapy. Patient is going to receive 2 units of PRBC before discharge. Blood cultures and urine cultures are no growth so far. WBC count is 4000. Patient agreed to go home and follow-up with Dr. Schumacher in 1 week time. (2) Malignant neoplasm of uterus Is this a current diagnosis for this admission?: No Summary: 09/29/2018 patient has history of uterine cancer with metastasis to lungs. Patient is receiving chemotherapy last chemotherapy 11 days ago. Consultation with Dr. Schumacher was requested. 09/30/2018-patient has history of uterine cancer with metastasis to the lungs management as per dr Schumacher 10/01/2018-patient has history of malignant uterine cancer with metastasis to the lung. She is follow-up with Dr. Schumacher as an outpatient. Management as per Dr. Schumacher. (3) HTN (hypertension) Is this a current diagnosis for this admission?: No Summary: 09/29/2018-and has history of hypertension blood pressure here is 122/62. Patient is on lisinopril at home. Plan is to resume the medication during the hospital stay. 09/30/2018-patient's latest blood pressure is 117/45. Taking losartan 100 mg p.o. daily at home plan is to decrease it to 50 mg p.o. daily. 10/01/2018-patient blood pressure today is 109/67 with a temperature of 98.5. Asymptomatic. Patient is presently on losartan 50 mg p.o. daily patient advised to continue the medication at home. (4) Anemia Is this a current diagnosis for this admission?: Yes Summary: 09/29/2018-patient's hemoglobin is 9.1 on admission previous one is around 11.8. Drop in hemoglobin may be secondary to chemotherapy. Anemia management as per Dr. Schumacher. 09/30/2018-latest hemoglobin is 7.9 most likely secondary to hemodilution anemia management as per Dr. Schumacher. 10/01/2018-patient hemoglobin is 7.8 today she is going to receive 2 units of PRBC after that she will be discharged home. (5) Rheumatoid arthritis Is this a current diagnosis for this admission?: No Summary: 09/29/2018-patient has history of rheumatoid arthritis she is on prednisone at home and also receiving oxycodone 5 mg 1-2 tablets every 6 as needed for pain. Those medications are going to be restarted during the hospital stay. 09/30/2018-patient has history of rheumatoid arthritis and oxycodone at home and also receiving prednisone plan is to continue the present management. 10/01/2018 patient has history of rheumatoid arthritis on p.o. prednisone at home as per Dr. ALLEN recommendations prednisone was discontinued. - Additional Information Resuscitation Status: Full Code Discharge Diet: Regular Discharge Activity: Activity As Tolerated Prescriptions: Levofloxacin [Levaquin 500 mg Tablet] 500 mg PO DAILY #10 tablet Home Medications: Calcium Citrate/Vitamin D3 [Calcium Citrate - Vit D3 Tab] 1 tab PO DAILY 07/30/18 Duloxetine HCl 60 mg PO DAILY 07/30/18 Esomeprazole Magnesium 40 mg PO DAILY 07/30/18 Fish Oil/Dha/Epa [Fish Oil 1,200 mg Fish Oil] 1 each PO DAILY 07/30/18 Folic Acid [Folvite 1 mg Tablet] 1 mg PO DAILY 07/30/18 Leflunomide 10 mg PO DAILY 07/30/18 Rosuvastatin Calcium 5 mg PO DAILY 07/30/18 Clobetasol Propionate [Temovate 0.05% Cream 15 gm] 1 applic TOP TID 09/30/18 Hydrochlorothiazide [Hydrodiuril 12.5 mg Tablet] 12.5 mg PO DAILYP PRN 09/30/18 Levothyroxine Sodium [Synthroid 0.1 mg Tablet] 0.1 mg PO DAILY 09/30/18 Ondansetron HCl [Zofran 8 mg Tablet] 8 mg PO Q8HP PRN 09/30/18 Oxycodone HCl [Oxy-Ir 5 mg Tablet] 5 mg PO Q6HP PRN 09/30/18 Levofloxacin [Levaquin 500 mg Tablet] 500 mg PO DAILY #10 tablet 10/01/18 Losartan Potassium [Cozaar 50 mg Tablet] 50 mg PO DAILY tablet 10/01/18 History of Present Illness History of Present Illness: PRASHANTH MARIANO is a 72 year old female with history of uterine cancer receiving chemotherapy metastasis to the lungs, hypertension, rheumatoid arthritis, hyperlipidemia came to the emergency room fever of 1 day duration. As per the family she has a fever of 100.7 yesterday associated with chills and sweating. She is also complaining of stuffy nose. Denies any chest pains or cough. Complaining of nausea decreased appetite. Denies any constipation diarrhea. Denies any rashes. Received chemotherapy 11 days ago. Most with Dr. Schumacher. In the emergency room workup was done and found to have a lipase account 2.1 and neutrophils 8, with fever of 100.7. Blood pressures are stable. Chest x-ray was negative. She received cefepime in the ER and medical consult was called fo admission. Hospital Course Hospital Course: 10/01/2018-no complications during the hospital stay. 72-year-old female with uterine cancer and lung metastasis to the lungs admitted for neutropenia febrile neutropenia and she was treated with IV antibiotic therapy consultation with Dr. Schumacher was done. Patient is going to receive 2 units of blood transfusion before discharge today. Blood cultures and urine cultures are negative. Prescription was given for levofloxacin 500 mg p.o. daily for 10 days. Physical Exam Vital Signs: Temp Pulse Resp BP Pulse Ox 98.6 F 97 18 120/57 L 96 10/01/18 08:20 10/01/18 08:20 10/01/18 08:20 10/01/18 08:20 10/01/18 08:20 Intake & Output 09/30/18 10/01/18 10/02/18 06:59 06:59 06:59 Intake Total 2150 1740 Balance 2150 1740 Weight 82.8 kg 86.6 kg General appearance: PRESENT: no acute distress Head exam: PRESENT: atraumatic Eye exam: PRESENT: PERRLA Mouth exam: PRESENT: moist, tongue midline Neck exam: ABSENT: carotid bruit, JVD, lymphadenopathy, thyromegaly Respiratory exam: PRESENT: decreased breath sounds Cardiovascular exam: PRESENT: tachycardia GI/Abdominal exam: PRESENT: normal bowel sounds, soft. ABSENT: distended, guarding, mass, organolmegaly, rebound, tenderness Extremities exam: PRESENT: full ROM. ABSENT: calf tenderness, clubbing, pedal edema Neurological exam: PRESENT: alert, awake, oriented to person, oriented to place, oriented to time, oriented to situation, CN II-XII grossly intact. ABSENT: motor sensory deficit Psychiatric exam: PRESENT: appropriate affect, normal mood. ABSENT: homicidal ideation, suicidal ideation Results Laboratory Results: 10/01/18 04:15 10/01/18 04:15 09/29/18 10/01/18 10/01/18 14:47 04:15 04:15 WBC 4.0 RBC 2.69 L Hgb 7.8 L Hct 22.4 L MCV 83 MCH 28.8 MCHC 34.7 RDW 24.2 H Plt Count 117 L Seg Neutrophils % Not Reportable Lymphocytes % Not Reportable Monocytes % Not Reportable Eosinophils % Not Reportable Basophils % Not Reportable Absolute Neutrophils Not Reportable Absolute Lymphocytes Not Reportable Absolute Monocytes Not Reportable Absolute Eosinophils Not Reportable Absolute Basophils Not Reportable Sodium 134.6 L Potassium 3.1 L Chloride 103 Carbon Dioxide 25 Anion Gap 7 BUN 4 L Creatinine 0.58 Est GFR ( Amer) > 60 Est GFR (Non-Af Amer) > 60 Glucose 115 H Calcium 7.9 L Magnesium 1.4 L Total Bilirubin 0.3 AST 25 ALT 31 Alkaline Phosphatase 65 Total Protein 5.4 L Albumin 2.8 L Blood Type A POSITIVE Antibody Screen NEGATIVE 09/29/18 15:02 Catheterized Urine Urine Culture - Final NO GROWTH 2 DAYS 09/29/18 09/29/18 09/29/18 14:15 14:15 20:50 Creatine Kinase 97 81 CK-MB (CK-2) 0.77 Troponin I < 0.012 NT-Pro-B Natriuret Pep 09/29/18 09/30/18 09/30/18 20:50 03:12 03:12 Creatine Kinase 85 CK-MB (CK-2) 0.92 0.71 Troponin I < 0.012 < 0.012 NT-Pro-B Natriuret Pep 222 Impressions: Chest X-Ray 09/29/18 13:39 IMPRESSION: 1. Probable trace right pleural effusion. 2. Greatly improved appearance of bilateral pulmonary nodules. Qualifiers - * PATIENT BEING DISCHARGED WITH ANY OF THE FOLLOWING DIAGNOSIS: No VTE patient discharged on overlapping Therapy?: No Plan Discharge Plan: Patient is going home today. Time Spent: Less than 30 Minutes
[2018-10-01] MEDS ORDERED: MAGNESIUM SULFATE/D5W 1 GM/100 ML RTUPB IV ONE (15:04)
[2018-10-01] MEDS: LORAZEPAM 0.5 MG TABLET PO PRN ×2 (15:09→22:02)
[2018-10-01] MEDS: ATORVASTATIN CALCIUM 10 MG TABLET PO SCH (22:00)
[2018-10-02] MEDS: CEFEPIME HCL 2 GM in DEXTROSE 5%-WATER 50 ML IV SCH (06:27)
[2018-10-02] MEDS: PANTOPRAZOLE SODIUM 40 MG TABLET.DR PO SCH (06:28)
[2018-10-02] MEDS: LORAZEPAM 0.5 MG TABLET PO PRN (06:28)
--- NOTE | 2018-10-02 07:58 | PDOC PROGRESS REPORT ---
Subjective Progress Note for:: 10/02/18 Subjective:: Patient sleeping peacefully, arouses only briefly. She was given ativan about 1 hour ago. Nurses report that she had a good night and received blood without difficulties. Reason For Visit: FEVER Physical Exam Vital Signs: Temp Pulse Resp BP Pulse Ox 98.3 F 85 18 140/58 H 92 10/02/18 04:00 10/02/18 04:00 10/02/18 04:00 10/02/18 04:00 10/02/18 04:00 Intake & Output 10/01/18 10/02/18 10/03/18 06:59 06:59 06:59 Intake Total 1740 2050 Output Total 4000 Balance 1740 -1950 Weight 86.6 kg 86.6 kg General appearance: PRESENT: no acute distress, well-developed, well-nourished Head exam: PRESENT: normocephalic Respiratory exam: PRESENT: clear to auscultation leah, unlabored Cardiovascular exam: PRESENT: RRR Extremities exam: ABSENT: pedal edema Skin exam: PRESENT: normal color Results Laboratory Results: 10/01/18 04:15 10/01/18 04:15 09/29/18 14:47 Blood Type A POSITIVE Antibody Screen NEGATIVE 09/29/18 15:02 Catheterized Urine Urine Culture - Final NO GROWTH 2 DAYS 09/29/18 09/29/18 09/29/18 14:15 14:15 20:50 Creatine Kinase 97 81 CK-MB (CK-2) 0.77 Troponin I < 0.012 NT-Pro-B Natriuret Pep 09/29/18 09/30/18 09/30/18 20:50 03:12 03:12 Creatine Kinase 85 CK-MB (CK-2) 0.92 0.71 Troponin I < 0.012 < 0.012 NT-Pro-B Natriuret Pep 222 Impressions: Chest X-Ray 09/29/18 13:39 IMPRESSION: 1. Probable trace right pleural effusion. 2. Greatly improved appearance of bilateral pulmonary nodules. Assessment & Plan - Diagnosis (1) Febrile neutropenia Is this a current diagnosis for this admission?: Yes Plan: Now resolved. She has been afebrile for >24 hours. Would discharge home on oral antibiotics. (2) Malignant neoplasm of uterus Qualifiers: Malignant neoplasm of uterus location: unspecified site of uterus Qualified Code(s): C55 - Malignant neoplasm of uterus, part unspecified Is this a current diagnosis for this admission?: No Plan: Scheduled for CT tomorrow as outpatient and follow-up with [facility] on Monday (3) Anemia Qualifiers: Other causes of anemia: antineoplastic chemotherapy Is this a current diagnosis for this admission?: Yes Plan: s/p 2 units pRBCs - Plan Summary Plan Summary: Plan for discharge today. I will see her as scheduled in the office.
[2018-10-02 09:19] LABS: HEMATOCRIT 32.4 % (36.0-47.0); MEAN CORPUSCULAR HEMOGLOBIN 28.9 pg (27.0-33.4); MEAN CORPUSCULAR HGB CONC 34.2 g/dL (32.0-36.0); MEAN CORPUSCULAR VOLUME 84 fl (80-97); PLATELET COUNT 135 10^3/uL (150-450); RED BLOOD COUNT 3.85 10^6/uL (3.72-5.28); RED CELL DISTRIBUTION WIDTH 21.5 % (11.5-14.0); WHITE BLOOD COUNT 6.1 10^3/uL (4.0-10.5)
[2018-10-02 09:31] LABS: HEMOGLOBIN 11.1 g/dL (12.0-15.5)
[2018-10-02 10:14] LABS: ABSOLUTE LYMPHOCYTES# (MANUAL) 1.3 10^3/uL (0.5-4.7); ABSOLUTE MONOCYTES # (MANUAL) 1.8 10^3/uL (0.1-1.4); BASOPHILS % (MANUAL) 0 % (0-2); EOSINOPHILS % (MANUAL) 0 % (0-6); LYMPHOCYTES % (MANUAL) 21 % (13-45); MONOCYTES % (MANUAL) 30 % (3-13); SEGMENTED NEUTROPHILS % (MAN) 49 % (42-78); TOTAL CELLS COUNTED 100
[2018-10-02 10:15] LABS: ANISOCYTOSIS 3+; OVALOCYTES SLIGHT; PLATELET COMMENT DECREASED; POIKILOCYTOSIS SLIGHT; POLYCHROMASIA SLIGHT
[2018-10-02] MEDS: ENOXAPARIN SODIUM INJ 30 MG/0.3 ML DISP.SYRIN SUBCUT SCH (10:37)
[2018-10-02] MEDS: DOCUSATE SODIUM 100 MG CAPSULE PO SCH (10:44)
[2018-10-02] MEDS: OMEGA-3 ACID ETHYL ESTERS 1 GM CAPSULE PO SCH (10:44)
[2018-10-02] MEDS: LEVOTHYROXINE SODIUM 0.1 MG TABLET PO SCH (10:44)
[2018-10-02] MEDS: CALCIUM CARBONATE 250 MG/VITAMIN D3 125 UNIT TABLET PO SCH (10:44)
[2018-10-02] MEDS: DULOXETINE HCL 30 MG CAPSULE.DR PO SCH (10:44)
[2018-10-02] MEDS: MAGNESIUM OXIDE 400 MG TABLET PO SCH (10:44)
[2018-10-02] MEDS: FOLIC ACID 1 MG TABLET PO SCH (10:44)
[2018-10-02] MEDS: FAMOTIDINE 20 MG TABLET PO SCH (10:45)
[2018-10-02] MEDS: LOSARTAN POTASSIUM 50 MG TABLET PO SCH (10:45)
[2018-10-02] MEDS: LEFLUNOMIDE 20 MG TABLET PO SCH (10:52)
[2018-10-02] MEDS: MULTIVITAMINS W-IRON TABLET, CHEWABLE PO SCH (10:53)
[2018-10-02] MEDS: PREDNISONE 10 MG TABLET PO SCH (10:54)
[2018-10-02] MEDS ORDERED: POTASSIUM CHLORIDE 10 MEQ CAPSULE.ER PO ONE (12:30)
[2018-10-02 13:18] VITALS: BP 140/58
[2018-10-02] MEDS: CLOBETASOL PROPIONATE 0.05% CREAM 15 GM TOP SCH (13:22)
--- NOTE | 2018-10-02 18:32 | Progress Note ---
Provider Note Provider Note: Patient was discharged yesterday but this was deferred as she was getting blood transfusion and Magnesium replacement which apparently got completed very late at night. No acute issue overnight. She denies acute complaint. Will proceed with discharge today.
== END 2018-10-02 13:30 | disposition home or self-care (01) | DRG 809 ==
LOC: ER 13:14 → EH 16:55 → 5 18:00
PROVIDERS: ADMIT Internal Medicine; ATTEND Internal Medicine
PROC: 30233N1 Transfusion of Nonautologous Red Blood Cells into Peripheral Vein, Percutaneous Approach (ICD-10-PCS; principal; 2018-10-01)
DX: D70.1 Agranulocytosis secondary to cancer chemotherapy (principal); C78.00 Secondary malignant neoplasm of unspecified lung; E87.1 Hypo-osmolality and hyponatremia; D64.81 Anemia due to antineoplastic chemotherapy; C55 Malignant neoplasm of uterus, part unspecified; I10 Essential (primary) hypertension; E78.5 Hyperlipidemia, unspecified; E03.9 Hypothyroidism, unspecified; K21.9 Gastro-esophageal reflux disease without esophagitis; M06.9 Rheumatoid arthritis, unspecified; F41.8 Other specified anxiety disorders; T45.1X5A Adverse effect of antineoplastic and immunosuppressive drugs, initial encounter; Y92.098 Other place in other non-institutional residence as the place of occurrence of the external cause; Z79.899 Other long term (current) drug therapy; Z79.52 Long term (current) use of systemic steroids
CPT/HCPCS: 36415; 36430; 51701; 71045; 80053; 81001; 82550; 82553; 82803; 82962; 83036; 83605; 83690; 83735; 83880; 84132; 84443; 84484; 85025; 85610; 85730; 86850; 86900; 86901; 86920; 87040; 87086; 87804; 93005; 93010; 96360; 96361; 99285; J0692; J2405; J3475; J3490; J7030; P9016

== ENCOUNTER → 2018-10-03 | Outpatient (CLI) | payer MEDICARE, OTHER ==
--- NOTE | 2018-10-03 10:49 | RADIOLOGY REPORT (SQ) ---
EXAM DESCRIPTION: CT CHEST WITH COMPLETED DATE/TIME: 10/03/2018 9:10 am REASON FOR STUDY: UTERINE CA (C55), LUNG NODULES (R91.1) C55 MALIGNANT NEOPLASM OF UTERUS, PART UNS PECIFIED COMPARISON: 07/31/2018 07/20/2018 TECHNIQUE: CT scan of the chest performed using helical scanning technique with dynamic intravenous contrast injection. Images reviewed with lung, soft tissue and bone windows. Reconstructed coronal and sagittal MPR and MIP images reviewed. All images stored on PACS. All CT scanners at this facility use dose modulation, iterative reconstruction, and/or weight based d osing when appropriate to reduce radiation dose to as low as reasonably achievable (ALARA). [facility]: Dose Right [facility]: CareDose [facility]: Dose Right [facility]: Teradose 4D [facility]: Waffle CONTRAST TYPE AND DOSE: 88 cc Omnipaque 350 RENAL FUNCTION: BUN 17, creatinine 0.6 RADIATION DOSE: . LIMITATIONS: None. FINDINGS: LUNGS AND PLEURA: There has been marked reduction in size and conspicuity of multiple leah ateral pulmonary nodules. For reference the previously described right lower lobe conglomerate now m easures 3.2 x 2.1 cm, previously 4.6 x 3.2 cm (series 6, image 78). Decreased in number of additiona l multiple nodules without definite new nodules or masses. Small right pleural effusion. No pneumot horax. No evidence of definite airspace disease. HILAR AND MEDIASTINAL STRUCTURES: There has been marked reduction in size and conspicuity of the prev iously described mediastinal adenopathy. Previously referenced right paratracheal node (axial image 21) demonstrates decreased size measuring 1.3 x 1.7 cm, previously 2.2 x 3.0 cm. Previously referenced precarinal node measures 1.7 by 1.5 cm (axial image 25), previously 2.4 x 2.0 cm. The additional previously described bilateral hilar nodes have also markedly decreased in size. HEART AND VASCULAR STRUCTURES: No aneurysm or dissection. No central pulmonary emboli. No pericardi al effusion. HARDWARE: None in the chest. UPPER ABDOMEN: See separate report of the CT of the abdomen. THYROID AND OTHER SOFT TISSUES: No masses. No adenopathy. BONES: No acute bony abnormality. No suspicious osseous lesions. Bone anchors within the right fe amparo, unchanged. OTHER: No other significant finding. IMPRESSION: 1. Marked reduction in size and number of the bilateral pulmonary nodules and mediastin al adenopathy, as detailed above, suggestive of favorable response. 2. New small right pleural effusion. 3. No additional evidence of acute intra-abdominal/pelvic process. TECHNICAL DOCUMENTATION: JOB ID: [id number] Quality ID # [id number]: Final reports with documentation of one or more dose reduction techniques (e.g., Au tomated exposure control, adjustment of the mA and/or kV according to patient size, use of iterative reconstruction technique) 2010 [employer]- All Rights Reserved Reading location - IP/workstation name: [email or web address]-
--- NOTE | 2018-10-03 11:10 | RADIOLOGY REPORT (SQ) ---
EXAM DESCRIPTION: CT ABD/PELVIS WITH IV ORAL COMPLETED DATE/TIME: 10/03/2018 9:10 am REASON FOR STUDY: UTERINE CA (C55), LUNG NODULES (R91.1) C55 MALIGNANT NEOPLASM OF UTERUS, PART UNS PECIFIED COMPARISON: None. TECHNIQUE: CT scan of the abdomen and pelvis performed using helical scanning technique with dynamic intravenous contrast injection. No oral contrast. Images reviewed with lung, soft tissue, and bone windows. Reconstructed coronal and sagittal MPR images reviewed. Delayed images for evaluation of the urinary system also acquired. All images stored on PACS. All CT scanners at this facility use dose modulation, iterative reconstruction, and/or weight based d osing when appropriate to reduce radiation dose to as low as reasonably achievable (ALARA). [facility]: Dose Right [facility]: CareDose [facility]: Dose Right [facility]: Teradose 4D [facility]: Rolith CONTRAST TYPE AND DOSE: contrast/concentration: Isovue 350.00 mg/ml; Total Contrast Delivered: 88.0 ml; Total Saline Delivered: 70.0 ml RENAL FUNCTION: See chest CT RADIATION DOSE: CT Rad equipment meets quality standard of care and radiation dose reduction techniq ues were employed. CTDIvol: 6.0 - 12.3 mGy. DLP: 1509 mGy-cm.. LIMITATIONS: Pelvis of obscured from dense streak artifact. FINDINGS: LOWER CHEST: See separate report of the CT of the chest. LIVER: Normal size. No masses. No dilated ducts. SPLEEN: Normal size. No focal lesions. And scattered calcified granuloma. PANCREAS: No masses. No significant calcifications. No adjacent inflammation or peripancreatic fluid collections. Pancreatic duct not dilated. GALLBLADDER: No identified stones by CT criteria. No inflammatory changes to suggest cholecystitis. ADRENAL GLANDS: Unremarkable right adrenal gland. Mild nodularity of the left adrenal gland measurin g up to 5 mm, unchanged. No discrete mass. RIGHT KIDNEY AND URETER: No solid masses. No significant calcifications. No hydronephrosis or hyd roureter. LEFT KIDNEY AND URETER: No solid masses. No significant calcifications. No hydronephrosis or hydr oureter. AORTA AND VESSELS: No aneurysm. No dissection. Renal arteries, SMA, celiac without stenosis. RETROPERITONEUM: No retroperitoneal adenopathy, hemorrhage or masses. BOWEL AND PERITONEAL CAVITY: Scattered colonic diverticula. No focal bowel wall thickening. No evid ence of intestinal obstruction. APPENDIX: Normal. PELVIS: Partially obscured from dense streak artifact from bilateral hip arthroplasty hardware. Obsc ured urinary bladder. There is a mildly enlarged heterogeneous appearance of the uterus measuring up to 5.2 x 4.8 cm, previously measuring 8.5 8.3 cm on exam dated 07/16/2018. No free fluid within the pelvis. Scattered pelvic nodes without discrete adenopathy. ABDOMINAL WALL: No masses. No hernias. BONES: No acute bony abnormality. No suspicious osseous lesions. OTHER: No other significant finding. IMPRESSION: 1. Decreased size of the heterogeneous uterine mass now measuring 5.2 x 4.8 cm, previou sly 8.5 x 8.3 cm. 2. No definite evidence of new metastatic disease within the abdomen or pelvis. 3. No evidence of acute intra-abdominal/pelvic process. TECHNICAL DOCUMENTATION: JOB ID: [id number] Quality ID # 436: Final reports with documentation of one or more dose reduction techniques (e.g., Au tomated exposure control, adjustment of the mA and/or kV according to patient size, use of iterative reconstruction technique) 2010 [employer]- All Rights Reserved Reading location - IP/workstation name: [email or web address]
== END ==
LOC: RAD 08:34
PROVIDERS: ATTEND Internal Medicine Hematology & Oncology
DX: C55 Malignant neoplasm of uterus, part unspecified (principal); R91.1 Solitary pulmonary nodule
CPT/HCPCS: 71260; 74177

== ENCOUNTER → 2018-12-05 | Outpatient (CLI) | payer MEDICARE, OTHER ==
--- NOTE | 2018-12-05 13:00 | RADIOLOGY REPORT (SQ) ---
EXAM DESCRIPTION: CHEST 2 VIEWS COMPLETED DATE/TIME: 12/05/2018 11:25 am REASON FOR STUDY: PAIN ON BREATHING (R07.1), LUNG MASS (R91.8) COMPARISON: 09/29/2018 EXAM PARAMETERS: NUMBER OF VIEWS: two views TECHNIQUE: Digital Frontal and Lateral radiographic views of the chest acquired. RADIATION DOSE: NA LIMITATIONS: none FINDINGS: LUNGS AND PLEURA: There is patchy nodularity in both lungs. No acute infiltrate or effusi on. MEDIASTINUM AND HILAR STRUCTURES: No masses or contour abnormalities. HEART AND VASCULAR STRUCTURES: Heart normal size. No evidence for failure. BONES: No acute findings. HARDWARE: Injection port on the right. OTHER: No other significant finding. IMPRESSION: Patchy nodularity bilaterally. No acute infiltrate or effusion. TECHNICAL DOCUMENTATION: JOB ID: [id number] [employer]- All Rights Reserved Reading location - IP/workstation name: [email or web address]
== END ==
LOC: RAD 10:53
PROVIDERS: ATTEND Nurse Practitioner Family
DX: R07.1 Chest pain on breathing (principal); R91.8 Other nonspecific abnormal finding of lung field
CPT/HCPCS: 71046

== ENCOUNTER → 2019-02-08 | Outpatient (CLI) | payer MEDICARE, OTHER ==
--- NOTE | 2019-02-08 13:44 | RADIOLOGY REPORT (SQ) ---
EXAM DESCRIPTION: CT CHEST WITH COMPLETED DATE/TIME: 02/08/2019 9:26 am REASON FOR STUDY: (C55)MALIGNANT NEOPLASM OF UTERUS, PART UNSPECIFIED C55 MALIGNANT NEOPLASM OF [place], PART UNSPECIFIED COMPARISON: 10/03/2018 TECHNIQUE: CT scan of the chest performed using helical scanning technique with dynamic intravenous contrast injection. Images reviewed with lung, soft tissue and bone windows. Reconstructed coronal and sagittal MPR and MIP images reviewed. All images stored on PACS. All CT scanners at this facility use dose modulation, iterative reconstruction, and/or weight based d osing when appropriate to reduce radiation dose to as low as reasonably achievable (ALARA). [facility]: Dose Right [facility]: CareDose [facility]: Dose Right [facility]: Teradose 4D [facility]: Smart [employer] CONTRAST TYPE AND DOSE: See separate of the same date. RENAL FUNCTION: See separate report. RADIATION DOSE: . LIMITATIONS: None. FINDINGS: LUNGS AND PLEURA: Continued decrease in size of multiple bilateral pulmonary nodules. For example largest conglomerate image 71, 1.4 x 2.6 cm, previously 2.1 x 3.2 cm. No new nodules. No e ffusions. HILAR AND MEDIASTINAL STRUCTURES: 1.9 x 1.6 cm right hilar level 10 node, unchanged. HEART AND VASCULAR STRUCTURES: No aneurysm or dissection. No central pulmonary emboli. No pericardi al effusion. HARDWARE: None in the chest. UPPER ABDOMEN: See separate report of the CT of the abdomen. THYROID AND OTHER SOFT TISSUES: No masses. No adenopathy. BONES: No significant finding. OTHER: Right-sided port. IMPRESSION: Favorable response to therapy with continued decrease in size of multiple pulmonary nodu les. TECHNICAL DOCUMENTATION: JOB ID: [id number] Quality ID # 436: Final reports with documentation of one or more dose reduction techniques (e.g., Au tomated exposure control, adjustment of the mA and/or kV according to patient size, use of iterative reconstruction technique) 2010 [employer]- All Rights Reserved Reading location - IP/workstation name: [email or web address]
--- NOTE | 2019-02-08 13:51 | RADIOLOGY REPORT (SQ) ---
EXAM DESCRIPTION: CT ABD/PELVIS WITH IV ORAL COMPLETED DATE/TIME: 02/08/2019 9:26 am REASON FOR STUDY: (C55)MALIGNANT NEOPLASM OF UTERUS, PART UNSPECIFIED C55 MALIGNANT NEOPLASM OF [place], PART UNSPECIFIED COMPARISON: 10/03/2018 TECHNIQUE: CT scan of the abdomen and pelvis performed with intravenous and oral contrast using dunia sharon scanning technique with dynamic intravenous contrast injection. Images reviewed with lung, soft t issue, and bone windows. Reconstructed coronal and sagittal MPR images reviewed. Delayed images for e valuation of the urinary system also acquired. All images stored on PACS. All CT scanners at this facility use dose modulation, iterative reconstruction, and/or weight based d osing when appropriate to reduce radiation dose to as low as reasonably achievable (ALARA). [facility]: Dose Right [facility]: CareDose [facility]: Dose Right [facility]: Teradose 4D [facility]: Slipstream CONTRAST TYPE AND DOSE: contrast/concentration: Isovue 350.00 mg/ml; Total Contrast Delivered: 83.0 ml; Total Saline Delivered: 69.0 ml RENAL FUNCTION: GFR > 60. RADIATION DOSE: CT Rad equipment meets quality standard of care and radiation dose reduction techniq ues were employed. CTDIvol: 5.3 - 10.8 mGy. DLP: 1236 mGy-cm. . LIMITATIONS: Artifact from bilateral hip arthroplasty FINDINGS: LOWER CHEST: See separate report of the CT of the chest. LIVER: Normal size. No masses. No dilated ducts. SPLEEN: Normal size. No focal lesions. PANCREAS: No masses. No significant calcifications. No adjacent inflammation or peripancreatic fluid collections. Pancreatic duct not dilated. GALLBLADDER: No identified stones by CT criteria. No inflammatory changes to suggest cholecystitis. ADRENAL GLANDS: No significant masses or asymmetry. RIGHT KIDNEY AND URETER: No solid masses. No significant calcifications. No hydronephrosis or hyd roureter. LEFT KIDNEY AND URETER: No solid masses. No significant calcifications. No hydronephrosis or hydr oureter. AORTA AND VESSELS: No aneurysm. No dissection. Renal arteries, SMA, celiac without stenosis. RETROPERITONEUM: No retroperitoneal adenopathy, hemorrhage or masses. BOWEL AND PERITONEAL CAVITY: No obstruction. No visualized masses. No free fluid. No inflammatory ch anges or thickening of bowel wall. APPENDIX: Normal. PELVIS: No significant masses. Status post hysterectomy. Normal bladder. No free fluid. ABDOMINAL WALL: No masses. No hernias. BONES: No significant or acute findings. OTHER: No other significant finding. IMPRESSION: No evidence of metastatic disease. TECHNICAL DOCUMENTATION: JOB ID: [id number] Quality ID # [id number]: Final reports with documentation of one or more dose reduction techniques (e.g., Au tomated exposure control, adjustment of the mA and/or kV according to patient size, use of iterative reconstruction technique) 2010 [employer]- All Rights Reserved Reading location - IP/workstation name: [email or web address]
== END ==
LOC: RAD 08:50
PROVIDERS: ATTEND Nurse Practitioner Family
DX: C55 Malignant neoplasm of uterus, part unspecified (principal); Z90.710 Acquired absence of both cervix and uterus
CPT/HCPCS: 71260; 74177; 82565

== ENCOUNTER → 2019-07-20 | Outpatient (CLI) | payer MEDICARE, OTHER ==
--- NOTE | 2019-07-20 15:18 | RADIOLOGY REPORT (SQ) ---
EXAM DESCRIPTION: MRI HEAD COMBO COMPLETED DATE/TIME: 07/20/2019 1:55 pm REASON FOR STUDY: R51 HEADACHE, C55 MALIGNANT NEOPLASM OF UTERUS C55 MALIGNANT NEOPLASM OF UTERUS, PART UNSPECIFIED COMPARISON: CT brain 05/11/2012, 07/20/2018 CT chest abdomen pelvis 02/08/2019 TECHNIQUE: Multiplanar imaging includes noncontrasted T1, T2, FLAIR, diffusion with ADC map and post gadolinium contrast T1 sequences. Images stored on PACS. CONTRAST TYPE AND DOSE: 15 mL Dotarem. RENAL FUNCTION: Not indicated. ACR Type II contrast agent associated with few, if any, unconfounded cases of NSF LIMITATIONS: None. FINDINGS: ANATOMY: No developmental anomalies. Normal vascular flow voids. Pituitary fossa normal. CSF SPACES: Normal in size and contour. No hemorrhage. CEREBRUM: There are two peripheral rim enhancing masses in the right posterior temporal lobe with keron rounding vasogenic edema worrisome for metastatic disease. Moderate local mass effect with partial e ffacement of the posterior right sylvian fissure, and 10 mm of right to left subfalcine shift. No fernandez perimposed acute hemorrhage. The larger of these two lesions measures 4.6 x 3.7 x 3.7 cm best shown on axial image 13. Smaller lesion measures 3.4 x 3.2 x 3.1 cm on axial image 11. No other peripheral rim enhancing masses are identified. No MR evidence of acute large territory isc hemic change. POSTERIOR FOSSA: No signal alteration. No hemorrhage. No edema, masses, or mass effect. Internal maddi tory canals, cerebellopontine angles, mastoids normal. No enhancing lesions. No abnormal enhancement post contrast. DIFFUSION IMAGING: Negative for acute or subacute infarction. ORBITS: No masses. Globes normal. PARANASAL SINUSES: No fluid levels. Mucosa normal. OTHER: No other significant finding. IMPRESSION: Masses in the right posterior temporal lobe worrisome for metastatic disease EVIDENCE OF ACUTE STROKE: NO. TECHNICAL DOCUMENTATION: JOB ID: [id number] [employer]- All Rights Reserved Reading location - IP/workstation name: [email or web address]
== END ==
LOC: RAD 12:25
PROVIDERS: ATTEND Internal Medicine Hematology & Oncology
DX: C55 Malignant neoplasm of uterus, part unspecified (principal); R51 Headache; H53.9 Unspecified visual disturbance
CPT/HCPCS: 82565; 70553; A9576